=== PATIENT | female | born 1930 | race Caucasian/White ===

== ENCOUNTER 2020-01-10 09:58 | Inpatient (IN) | payer MEDICARE, BC ==
[~2020-01-10] VITALS: Ht 167.6 cm; Wt 106.6 kg
[2020-01-10] MEDS ORDERED: FURO40TA4 PO (10:33)
[2020-01-10] MEDS ORDERED: METO50TA4 PO (10:33)
[2020-01-10] MEDS ORDERED: POTA10TA12 PO (10:33)
[2020-01-10] MEDS ORDERED: LEVO100T5 PO (10:33)
[2020-01-10] MEDS ORDERED: ATOR20TA58 PO (10:33)
[2020-01-10] MEDS ORDERED: PREG300C PO (10:33)
[2020-01-10] MEDS ORDERED: HYDR-2868 PO (10:33)
[2020-01-10] MEDS ORDERED: DULO40CA2 PO (10:33)
[2020-01-10] MEDS ORDERED: LOSA-73 PO (10:33)
[2020-01-10] MEDS ORDERED: PANT40TA77 PO (10:33)
[2020-01-10] MEDS ORDERED: ALLO300T PO (10:33)
[2020-01-10 10:41] LABS: BASO # 0.1 x10^3/uL (0.0-0.2); BASO % 1 % (0-3); EOS # 0.7 x10^3/uL (0.0-0.7); EOS % 10 % (0-3); HEMATOCRIT 40.7 % (36.0-47.0); HEMOGLOBIN 13.4 g/dL (12.0-15.5); LYMPH # 1.4 x10^3/uL (1.0-4.8); LYMPH % 20 % (24-48); MEAN CORPUSCULAR HEMOGLOBIN 32 pg (25-35); MEAN CORPUSCULAR HGB CONC 33 g/dL (31-37); MEAN CORPUSCULAR VOLUME 98 fL (79-100); MONO # 0.5 x10^3/uL (0.0-1.1); MONO % 8 % (0-9); NEUT # 4.4 x10^3/uL (1.8-7.7); NEUT % 62 % (31-73); PLATELET COUNT 156 x10^3/uL (140-400); RED BLOOD COUNT 4.14 x10^6/uL (3.50-5.40); RED CELL DISTRIBUTION WIDTH 14.8 % (11.5-14.5)
[2020-01-10] MEDS ORDERED: LABETALOL 20 MG/4 ML DISP.SYRIN. IVP ONE (10:45)
--- NOTE | 2020-01-10 10:47 | RAD ---
CT head without contrast. CT cervical spine without contrast. PQRS statement: CT scans at this facility use dose reduction including either automated exposure control, iterative reconstructions, and /or weight based radiation dosing via mA and kV modification when appropriate to reduce radiation dose to as low as reasonably achievable. HISTORY: Syncope, fall, stroke. CT head findings: No intracranial hemorrhage, mass, hydrocephalus or extra-axial fluid collections. There is a hypodense age-indeterminate ischemic infarct of the left occipital lobe best demonstrated on axial images 12-14 and on the coronal images as well. 2 cm in thickness left parietal scalp hematoma. Orbits, mastoids and bones are unremarkable. IMPRESSION: 1. No acute traumatic intracranial injury. 2. Age-indeterminate hypodense ischemic infarct of the left occipital lobe. 3. Scalp hematoma. No skull fracture. CT cervical spine findings: Craniocervical junction intact. C1-C2 atlantodental osteoarthritis. Cervical vertebral body height and alignment intact. 1 mm anterolisthesis C4 on C5 associated with disc disease and facet arthritis. Mild heterotopic ossification nuchal ligament dorsal paraspinal tissues. Chronic sclerotic bone ossicles posterior of the C1 lamina. No fracture of the cervical spine. Apical paraseptal interstitial thickening may represent edema. Multilevel cervical disc height loss as well as scattered disc osteophytes and uncovertebral and facet spurring with multilevel neural foraminal stenoses, and probable spinal canal stenoses at C5-C6 and C6-C7 at a minimum. IMPRESSION: 1. No acute osseous injury of the cervical spine. 2. Cervical disc disease. 3. There may be apical pulmonary interstitial edema present. Electronically signed by: Feroz Barnett MD (01/10/2020 10:44 AM) [id number]
--- NOTE | 2020-01-10 10:48 | EKG ---
[facility] [address] [place] [address] Test Date: 2020-01-10 Test Time: 10:04:58 Pat Name: SIMI DEVI Department: Room: Gender: F Structured Cabling Technician: : 1930 Requested By: DEMETRICE BROWNLEE Order Number: [id number] Reading MD: Measurements Intervals [place] Rate: 76 P: 47 MO: 178 QRS: -18 QRSD: 102 T: 7 QT: 388 QTc: 441 Interpretive Statements SINUS RHYTHM LEFTWARD AXIS R-S TRANSITION ZONE IN V LEADS DISPLACED TO THE RIGHT INCOMPLETE RIGHT BUNDLE BRANCH BLOCK QRS(T) CONTOUR ABNORMALITY CONSISTENT WITH INFERIOR INFARCT AGE UNDETERMINED ABNORMAL ECG RI6.02 No previous ECG available for comparison
[2020-01-10 10:50] LABS: CALCIUM 8.9 mg/dL (8.5-10.1); CREATININE 0.9 mg/dL (0.6-1.0); GFR 59.1; POTASSIUM 4.5 mmol/L (3.5-5.1)
[2020-01-10 10:55] LABS: ALBUMIN 3.5 g/dL (3.4-5.0); ALBUMIN/GLOBULIN RATIO 1.1 (1.0-1.7); MAGNESIUM 2.4 mg/dL (1.8-2.4); TOTAL BILIRUBIN 0.4 mg/dL (0.2-1.0); TOTAL PROTEIN 6.6 g/dL (6.4-8.2)
[2020-01-10 11:22] LABS: BILIRUBIN,URINE NEGATIVE (NEG); CLARITY,URINE CLEAR; COLOR,URINE YELLOW; NITRITE,URINE NEGATIVE (NEG); PROTEIN,URINE NEGATIVE (NEG-TRACE)
[2020-01-10 11:33] LABS: PROTHROMBIN TIME PATIENT 13.3 SEC (11.7-14.0)
[2020-01-10 11:35] LABS: BACTERIA,URINE 0 /HPF (0-FEW); RBC,URINE OCC /HPF (0-2); WBC,URINE OCC /HPF (0-4)
[2020-01-10 12:45] LABS: % BANDS 2 % (0-9); % EOS 6 % (0-5); % LYMPHS 18 % (24-48); % MONOS 5 % (0-10); % SEGS 69 % (35-66); PLT ESTIMATE ADEQUATE (ADEQUATE)
--- NOTE | 2020-01-10 13:00 | HP ---
ADMIT DATE: 01/10/2020 CHIEF COMPLAINT: Syncope. HISTORY OF PRESENT ILLNESS: The patient is a pleasant elderly female who apparently fell. She was out for a minute or two. She struck her head. They called the ambulance. She was brought in by ambulance. Trauma activation was initiated. In the ER, we have done some CAT scans of her brain. This showing a subacute stroke. She states she has been seeing a sunflower in her eye for the last 3 months. We suspect that might be when she had her stroke. Nevertheless, I discussed the case with ER physician. We are going to admit the patient and consult Cardiology and Neurology. PAST MEDICAL HISTORY: Hypertension, hyperlipidemia, neuropathy, anxiety, depression, GERD, hypothyroidism, gout. ALLERGIES: CODEINE. FAMILY HISTORY: Diabetes. SOCIAL HISTORY: She does not drink, smoke or take drugs. MEDICATIONS: Reviewed. She is on 11 including atorvastatin, hydrochlorothiazide, metoprolol, losartan, Lyrica, duloxetine, potassium, Lasix, Protonix, Synthroid and allopurinol. REVIEW OF SYSTEMS: GENERAL: No history of weight change, weakness or fevers. SKIN: No bruising, hair changes or rashes. EYES: She complains of a sunflower in her left eye. NOSE AND THROAT: No history of nosebleeds, hoarseness or sore throat. HEART: No history of palpitations, chest pain or shortness of breath on exertion. LUNGS: Denies cough, hemoptysis, wheezing or shortness of breath. GASTROINTESTINAL: Denies changes in appetite, nausea, vomiting, diarrhea or constipation. GENITOURINARY: No history of frequency, urgency, hesitancy or nocturia. NEUROLOGIC: She complains of weakness. PSYCHIATRIC: No history of panic, anxiety or depression. ENDOCRINE: No history of heat or cold intolerance, polyuria or polydipsia. EXTREMITIES: Denies muscle weakness, joint pain, pain on walking or stiffness. PHYSICAL EXAMINATION: VITALS: Within normal limits and are stable. GENERAL: No apparent distress. Alert and oriented. HEENT: The pupils were equally round and reactive to light and accommodation. No ocular changes were noted. EYES: Extraocular muscles are intact, pupils are equally round and reactive to light and accommodation MUSCULOSKELETAL: Well developed, well nourished, good range of motion ENDOCRINE: No thyromegaly was palpated LYMPHATICS: No cervical chain or axillary nodes were noted HEMATOPOIETIC: No bruising NECK: Supple, no JVD, no thyromegaly was noted. LUNGS: Clear to auscultation in all lung regalado without rhonchi or wheezing. HEART: RRR, S1, S2 present. Peripheral pulses intact, no obvious murmurs were noted. ABDOMEN: Soft, nontender. Positive bowel sounds no organomegaly, normal bowel sounds. EXTREMITIES: Without any cyanosis, clubbing, or edema. Pedal pulses intact, Homans sign is negative. NEUROLOGIC: She is somewhat weak. PSYCHIATRIC: Normal affect, normal mood. Stable. SKIN: No ulcerations or rashes, good skin turgor, no jaundice. VASCULAR: Good capillary refill, neurovascular bundle appears to be intact. LABORATORY DATA: Hematology is normal. Electrolytes are normal other than a glucose of 163 and BUN of 24. CT of the head shows no acute traumatic injuries. There is age indeterminate hypodensity in ischemic infarct in the left occipital lobe and a scalp hematoma, but no fractures. ASSESSMENT AND PLAN: Syncope, scalp hematoma, possible subacute stroke, hyperglycemia, azotemia. The patient has been admitted. We will consult Neurology, consult Cardiology. Cardiac monitoring, home meds, deep venous thrombosis prophylaxis. Full code. Long-term prognosis is guarded. IV fluids. LUCRETIA COTE DO DR: TIFFANIE/brown JOB#: [id number] / [id number]
--- NOTE | 2020-01-10 13:03 | PHYS DOC ---
Past Medical History Past Medical History: Arthritis, GERD, High Cholesterol, Hypertension, Hypothyroid, Other Additional Past Medical Histor: gout; neuropathy; Past Surgical History: Cholecystectomy, Coronary Bypass Surgery, Other Additional Past Surgical Histo: pelvis Smoking Status: Never Smoker Alcohol Use: None General Adult EDM: Chief Complaint: TRAUMA ALERT HPI: HPI: Patient is an 89-year-old female who presents to the emergency room after having a syncopal episode and hitting the back of her head. Patient states that she does remember waking up this morning and having breakfast. She took her morning medicine but does not believe she took her 10 AM medicine. She does not remember the fall. According to her daughter she was out for about 60 seconds. Patient states she is feeling better now. Review of Systems: Review of Systems: General: Denies fever, chills, sweats, fatigue Eyes: Denies drainage, blurred vision, eye redness HENT: Denies rhinorrhea, sore throat, earache Respiratory: Denies cough, shortness of breath, wheezing Cardiac: Denies edema, palpitations, chest pain GI: Denies abdominal pain, Nausea, vomiting MSK: Denies back pain, neck pain Skin: Denies rash, jaundice Neuro: Denies headache, dizziness Psychiatric: Denies SI/HI Heart Score: Risk Factors: Risk Factors: DM, Current or recent (<one month) smoker, HTN, HLP, family history of CAD, obesity. Risk Scores: Score 0 - 3: 2.5% MACE over next 6 weeks - Discharge Home Score 4 - 6: 20.3% MACE over next 6 weeks - Admit for Clinical Observation Score 7 - 10: 72.7% MACE over next 6 weeks - Early Invasive Strategies Current Medications: Current Medications Medications (Trade) Dose Ordered Sig/Keshav Start Time Stop Time Status Last Admin Dose Admin Labetalol HCl (Normodyne Iv Push) 10 mg 1X ONCE 01/10/20 10:45 01/10/20 10:46 DC 01/10/20 10:48 10 MG Allergies: Allergies: Allergies Coded Allergies Type Severity Reaction Last Updated Verified codeine Allergy Intermediate Nausea and Vomiting 01/10/20 Yes Physical Exam: PE: General: Awake, alert, NAD. Well Nourished, well hydrated. Cooperative HEENT: Hematoma to back of head, EOMI, PERRL, airway patent, moist oral mucosa, no nasal septal hematoma, no facial crepitus or deformity Neck: Supple, trachea midline, no C-spine tenderness Respiratory: CTA bilaterally, normal effort, no wheezing/crackles, no crepitus CV: RRR, no murmur, cap refill <2, 2+ bilateral radial/DP pulses GI: Soft, nondistended, nontender, no masses MSK: [No obvious deformities], pelvis stable and nontender Skin: Warm, dry, bruising to the right hand Neuro: A&O x3, speech NL, sensory and motor grossly intact, no focal deficits Psych: Normal affect, normal mood, not suicidal or homicidal Current Patient Data: Labs: Laboratory Tests Test 01/10/20 10:27 01/10/20 10:40 White Blood Count 7.0 x10^3/uL (4.0-11.0) Red Blood Count 4.14 x10^6/uL (3.50-5.40) Hemoglobin 13.4 g/dL (12.0-15.5) Hematocrit 40.7 % (36.0-47.0) Mean Corpuscular Volume 98 fL (79-100) Mean Corpuscular Hemoglobin 32 pg (25-35) Mean Corpuscular Hemoglobin Concent 33 g/dL (31-37) Red Cell Distribution Width 14.8 % (11.5-14.5) H Platelet Count 156 x10^3/uL (140-400) Neutrophils (%) (Auto) 62 % (31-73) Lymphocytes (%) (Auto) 20 % (24-48) L Monocytes (%) (Auto) 8 % (0-9) Eosinophils (%) (Auto) 10 % (0-3) H Basophils (%) (Auto) 1 % (0-3) Neutrophils # (Auto) 4.4 x10^3/uL (1.8-7.7) Lymphocytes # (Auto) 1.4 x10^3/uL (1.0-4.8) Monocytes # (Auto) 0.5 x10^3/uL (0.0-1.1) Eosinophils # (Auto) 0.7 x10^3/uL (0.0-0.7) Basophils # (Auto) 0.1 x10^3/uL (0.0-0.2) Segmented Neutrophils % 69 % (35-66) H Band Neutrophils % 2 % (0-9) Lymphocytes % 18 % (24-48) L Monocytes % 5 % (0-10) Eosinophils % 6 % (0-5) H Platelet Estimate Adequate (ADEQUATE) Prothrombin Time 13.3 SEC (11.7-14.0) Prothrombin Time INR 1.1 (0.8-1.1) Activated Partial Thromboplast Time 31 SEC (24-38) Sodium Level 142 mmol/L (136-145) Potassium Level 4.5 mmol/L (3.5-5.1) Chloride Level 105 mmol/L (98-107) Carbon Dioxide Level 28 mmol/L (21-32) Anion Gap 9 (6-14) Blood Urea Nitrogen 24 mg/dL (7-20) H Creatinine 0.9 mg/dL (0.6-1.0) Estimated GFR (Cockcroft-Gault) 59.1 BUN/Creatinine Ratio 27 (6-20) H Glucose Level 163 mg/dL (70-99) H Calcium Level 8.9 mg/dL (8.5-10.1) Magnesium Level 2.4 mg/dL (1.8-2.4) Total Bilirubin 0.4 mg/dL (0.2-1.0) Aspartate Amino Transferase (AST) 22 U/L (15-37) Alanine Aminotransferase (ALT) 25 U/L (14-59) Alkaline Phosphatase 85 U/L (46-116) Troponin I Quantitative < 0.017 ng/mL (0.000-0.055) Total Protein 6.6 g/dL (6.4-8.2) Albumin 3.5 g/dL (3.4-5.0) Albumin/Globulin Ratio 1.1 (1.0-1.7) Urine Collection Type U cath Urine Color Yellow Urine Clarity Clear Urine pH 7.0 (<5.0-8.0) Urine Specific [place] 1.020 (1.000-1.030) Urine Protein Negative mg/dL (NEG-TRACE) Urine Glucose (UA) Negative mg/dL (NEG) Urine Ketones (Stick) Negative mg/dL (NEG) Urine Blood Negative (NEG) Urine Nitrite Negative (NEG) Urine Bilirubin Negative (NEG) Urine Urobilinogen Dipstick 1.0 mg/dL (0.2 mg/dL) Urine Leukocyte Esterase Negative (NEG) Urine RBC Occ /HPF (0-2) Urine WBC Occ /HPF (0-4) Urine Squamous Epithelial Cells Mod /LPF Urine Bacteria 0 /HPF (0-FEW) Urine Mucus Slight /LPF Laboratory Tests 01/10/20 10:27 Laboratory Tests 01/10/20 10:27 Vital Signs: Vital Signs Date Time Temp Pulse Resp B/P (MAP) Pulse Ox O2 Delivery O2 Flow Rate FiO2 01/10/20 12:30 70 16 178/84 (115) 94 Nasal Cannula 2.0 01/10/20 09:58 97.4 97.4 EKG: EKG: [] Radiology/Procedures: Radiology/Procedures: [] Course & Med Decision Making: Course & Med Decision Making Pertinent Labs and Imaging studies reviewed. (See chart for details) Patient is a 89yo elderly female who presents to the ED after a syncopal episode leading to a closed head injury. On exam, patient has a hematoma to the back of the head and mild confusion. Due to patient's age and head trauma they cannot be ruled out with [place] CT head rule and will need a CT head to evaluate for intracranial bleed and a CT cervical spine. No signs of major facial injuries and a CT maxillofacial is not needed at this time. Syncopal work-up will also be ordered. Work-up at this time appears normal, however given patient's significant syncope and history she will need to be admitted for further evaluation. Neurology and cardiology will be consulted. Emilie Disclaimer: Emilie Disclaimer: This electronic medical record was generated, in whole or in part, using a voice recognition dictation system. Departure Departure Impression: Primary Impression: Syncope Additional Impression: Closed head injury Disposition: ADMITTED INPT THIS HOSP Referrals: SHAQUILLE FREIRE (PCP) DEMETRICE BROWNLEE MD Jan 10, 2020 13:03
--- NOTE | 2020-01-10 15:47 | PDOC2 ---
GEORGETTE PEÑALOZA USED [facility] 01/10/20 1547: CARDIAC CONSULT DATE OF CONSULT Date of Consult DATE: 01/10/20 TIME: 15:29 REASON FOR CONSULT Reason for Consult: Syncope REFERRING PHYSICIAN Referring Physician: Ceasar SOURCE Source: Caregiver (daughter), Chart review, Patient HISTORY OF PRESENT ILLNESS HISTORY OF PRESENT ILLNESS This is a pleasant 89 yo female admitted for complains of passing out. She was standing and switching of the faucet and cloing the cabinet door when then next thing she rembered was she on the floor. No flushed sensation, chest pain, palpitations or SOA and no visual or auditory disturbances prior to her passing out. She did have full breakfast that morning. No DM but has mutiple BP meds which she has not taken this morning. This was witnessed as her daughter was just close to her and may have lasted about 1 minute of unconsciousness. There was no BAUER, seziure like activity at wil time and no bowel or bladder incontinence. Denies any arrhythmias. She has been feeling more tired lately but again no chest pain or SOA. Her mobility is limited but able to get around the house otherwise. She has CAD with 4 stents in the past and had TAVR and follows up with Dr. Shepard at [facility]. PAST MEDICAL HISTORY Cardiovascular: CAD, CHF, HTN, Syncope, Hyperlipidemia, Aortic stenosis Pulmonary: Other ([place]) CENTRAL NERVOUS SYSTEM: Periperal neuropathy GI: GERD Psych: Anxiety Musculoskeletal: Osteoarthritis Rheumatologic: Gout ENT: Allergic Rhinitis Renal/: UTI Endocrine: Hypothyroidism Dermatology: No pertinent hx PAST SURGICAL HISTORY Past Surgical History: Other (TAVR 07/2015; PCI; pelvix repair; kyphoplasty) FAMILY HISTORY Family History noncontributory to age SOCIAL HISTORY Smoke: No ALCOHOL: none Drugs: None CURRENT MEDICATIONS CURRENT MEDICATIONS Current Medications Medications (Trade) Dose Ordered Sig/Keshav Route PRN Reason Start Time Stop Time Status Last Admin Dose Admin Labetalol HCl (Normodyne Iv Push) 10 mg 1X ONCE IVP 01/10/20 10:45 01/10/20 10:46 DC 01/10/20 10:48 ALLERGIES ALLERGIES: Coded Allergies: codeine (Verified Allergy, Intermediate, Nausea and Vomiting, 01/10/20) PHYSICAL EXAM General: Alert, Oriented X3, Cooperative, No acute distress HEENT: Atraumatic, Mucous membr. moist/pink Lungs: Clear to auscultation, Normal air movement Heart: Regular rate (SR), Normal S1, Normal S2, Other (S4- 3/6 systolic murmur to KAT border) Abdomen: Soft, No tenderness Extremities: No cyanosis, No edema Skin: No breakdown, Other (left scalp hematoma) Neuro: Normal speech, Sensation intact Psych/Mental Status: Mental status NL, Mood NL MUSCULOSKELETAL: Osteoarthritic changes both hands VITALS/I&O VITALS/I&O: Vital Signs Date Time Temp Pulse Resp B/P (MAP) Pulse Ox O2 Delivery O2 Flow Rate FiO2 01/10/20 15:00 72 16 176/96 (122) 95 Nasal Cannula 2.0 01/10/20 09:58 97.4 97.4 LABS Lab: Laboratory Tests Test 01/10/20 10:27 01/10/20 10:40 White Blood Count 7.0 x10^3/uL (4.0-11.0) Red Blood Count 4.14 x10^6/uL (3.50-5.40) Hemoglobin 13.4 g/dL (12.0-15.5) Hematocrit 40.7 % (36.0-47.0) Mean Corpuscular Volume 98 fL (79-100) Mean Corpuscular Hemoglobin 32 pg (25-35) Mean Corpuscular Hemoglobin Concent 33 g/dL (31-37) Red Cell Distribution Width 14.8 % (11.5-14.5) H Platelet Count 156 x10^3/uL (140-400) Neutrophils (%) (Auto) 62 % (31-73) Lymphocytes (%) (Auto) 20 % (24-48) L Monocytes (%) (Auto) 8 % (0-9) Eosinophils (%) (Auto) 10 % (0-3) H Basophils (%) (Auto) 1 % (0-3) Neutrophils # (Auto) 4.4 x10^3/uL (1.8-7.7) Lymphocytes # (Auto) 1.4 x10^3/uL (1.0-4.8) Monocytes # (Auto) 0.5 x10^3/uL (0.0-1.1) Eosinophils # (Auto) 0.7 x10^3/uL (0.0-0.7) Basophils # (Auto) 0.1 x10^3/uL (0.0-0.2) Segmented Neutrophils % 69 % (35-66) H Band Neutrophils % 2 % (0-9) Lymphocytes % 18 % (24-48) L Monocytes % 5 % (0-10) Eosinophils % 6 % (0-5) H Platelet Estimate Adequate (ADEQUATE) Prothrombin Time 13.3 SEC (11.7-14.0) Prothrombin Time INR 1.1 (0.8-1.1) Activated Partial Thromboplast Time 31 SEC (24-38) Sodium Level 142 mmol/L (136-145) Potassium Level 4.5 mmol/L (3.5-5.1) Chloride Level 105 mmol/L (98-107) Carbon Dioxide Level 28 mmol/L (21-32) Anion Gap 9 (6-14) Blood Urea Nitrogen 24 mg/dL (7-20) H Creatinine 0.9 mg/dL (0.6-1.0) Estimated GFR (Cockcroft-Gault) 59.1 BUN/Creatinine Ratio 27 (6-20) H Glucose Level 163 mg/dL (70-99) H Calcium Level 8.9 mg/dL (8.5-10.1) Magnesium Level 2.4 mg/dL (1.8-2.4) Total Bilirubin 0.4 mg/dL (0.2-1.0) Aspartate Amino Transferase (AST) 22 U/L (15-37) Alanine Aminotransferase (ALT) 25 U/L (14-59) Alkaline Phosphatase 85 U/L (46-116) Troponin I Quantitative < 0.017 ng/mL (0.000-0.055) Total Protein 6.6 g/dL (6.4-8.2) Albumin 3.5 g/dL (3.4-5.0) Albumin/Globulin Ratio 1.1 (1.0-1.7) Urine Collection Type U cath Urine Color Yellow Urine Clarity Clear Urine pH 7.0 (<5.0-8.0) Urine Specific [place] 1.020 (1.000-1.030) Urine Protein Negative mg/dL (NEG-TRACE) Urine Glucose (UA) Negative mg/dL (NEG) Urine Ketones (Stick) Negative mg/dL (NEG) Urine Blood Negative (NEG) Urine Nitrite Negative (NEG) Urine Bilirubin Negative (NEG) Urine Urobilinogen Dipstick 1.0 mg/dL (0.2 mg/dL) Urine Leukocyte Esterase Negative (NEG) Urine RBC Occ /HPF (0-2) Urine WBC Occ /HPF (0-4) Urine Squamous Epithelial Cells Mod /LPF Urine Bacteria 0 /HPF (0-FEW) Urine Mucus Slight /LPF Laboratory Tests 01/10/20 10:27 Laboratory Tests 01/10/20 10:27 ECHOCARDIOGRAM ECHOCARDIOGRAM 07/2016 [facility] Normal LV size and systolic function. LVEF is 65% Grade 1 LV diastolic dysfunction. Normal RV size and systolic function. Mild left atrial dilatation A well seated 26 mm Evolut Core valve transcather AV bioprosthesis is seen. No stenosis. Mean gradient is 9 mmHg. No AI Non specific thickening of the MV with mild annular calcification. No MS. Trace TR. Normal pulmonary artery pressure. No pericardial effusion is seen. ASSESSMENT/PLAN ASSESSMENT/PLAN 1. Syncope with fall with scalp hematoma. Possible arrhythmia. Negative for CSH 2. HTN urgency 3. HLP 4. CAD: past stent, total 4. clinically stable 5. Hyperglycemia 6. 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 Past hx of fall and syncope 8. Past left occipital stroke per CT 9. Fatigue Recommendations 1. EKG SR no acute changes. Will obtain TTE 2. Continue secondary prevention measures.Restart home BP regimen. Labetolol IV PRN Will do orthostatic readings. ASA statin 3. Check TSH, A1C and lipids 4. Monitor rhythm overnight 5. If inconclusive then will need MCOT and need to arrange with her primary atm servicer and I did discussed this with her daughter. 6. If no recent stress test then will need to consider as an outpt given her increaseing fatigue and significant cardiac risk factors MAX MATOS MD 01/10/202044: CARDIAC CONSULT ASSESSMENT/PLAN ASSESSMENT/PLAN Patient seen and examined. Agree with MANUFACTURING TECHNOLOGY ANALYST's assessment and plan. Tele did not show any significant arrhythmias Check 2D echo to rule out any structural abnormalities BP better controlled since admission Plan outpatient event monitor to rule out arrhythmias as a cause of syncope Thank you for your consultation GEORGETTE PEÑALOZA APRN Jan 10, 2020 15:47 MAX MATOS MD Jan 10, 2020 20:45
[2020-01-10 16:20] VITALS: BP 193/81
[2020-01-10 16:46] VITALS: BP 205/87
[2020-01-10 16:47] VITALS: BP_SYST 186; BP_SYST 206; BP_DIAS 82; BP_DIAS 91
[2020-01-10 16:54] LABS: CHOLESTEROL/HDL RATIO 3.8
[2020-01-10] MEDS: LOSARTAN POTASSIUM 50 MG TABLET. PO SCH (17:07)
[2020-01-10] MEDS: LABETALOL 20 MG/4 ML DISP.SYRIN. IVP PRN (17:08)
[2020-01-10] MEDS: METOPROLOL SUCC 24HR ER 50 MG TAB.ER.24H. PO SCH (17:08)
[2020-01-10 18:20] VITALS: BP 137/61
[2020-01-10 19:00] VITALS: BP 187/95
--- NOTE | 2020-01-10 20:31 | CONS ---
DATE OF CONSULTATION: 01/10/2020 REFERRING PHYSICIAN: Jabier Ragland MD REASON FOR CONSULTATION: Syncope, peripheral neuropathy, gait disturbance and severe acute neck pain. HISTORY OF PRESENT ILLNESS: The patient is a pleasant 89-year-old woman who was in her kitchen. She remembers getting something out of her refrigerator and this is the last she remembers. She fell back on her head. She does not remember the fall or the impact. One of her daughters was in the house. She awoke within 30 minutes and was talking, but asked the same question repeatedly. It took a few minutes before she was making more sense. Paramedics were summoned and she was taken to [facility]. She underwent a CT scan of her head and cervical spine in the Emergency Room. There was no acute intracranial injury nor was there an acute osseous injury of the cervical spine. The patient lives in her own home by herself. Her closest daughter is about 6 miles away. She has previously had syncope related to coronary artery disease. With this spell, she did not have convulsive activity. She did not have a warning that this spell was going to happen. She does now complain of neck pain after this fall. Any movement of the neck seems to cause her to have left-sided neck pain. She has also had a visual disturbance out of her left eye where it feels like she is seeing a sunflower. She will close her left eye and see normally out of the right eye. She has not had this investigated by ux specialist. She has not noted focal weakness. She has peripheral neuropathy for which she follows with Dr. Camacho. It does not sound as if an etiology for the neuropathy has ever been discovered. PAST MEDICAL HISTORY: 1. Hypertension. 2. Hyperlipidemia. 3. Peripheral neuropathy. 4. Anxiety and depression. 5. Gastroesophageal reflux disease. 6. Hypothyroidism. 7. Gout. 8. History of syncope. 9. Coronary artery disease, status post stents. ALLERGIES: CODEINE. MEDICATIONS PRIOR TO ADMISSION: Allopurinol 300 mg, atorvastatin 20 mg, duloxetine 40 mg, furosemide 40 mg, hydralazine 25 mg twice per day, levothyroxine 100 mcg, losartan 50 mg, metoprolol succinate 50 mg, pantoprazole 40 mg, potassium chloride 10 mEq and Lyrica 300 mg twice per day. FAMILY HISTORY: Diabetes. SOCIAL HISTORY: She lives alone. She does not smoke tobacco, drink alcohol or use recreational drugs. She has children that keep an eye. REVIEW OF SYSTEMS: She has occasional headaches, but not currently. She does currently have neck pain, especially on the left side with head movement. She has not had cough, cold, or shortness of breath. She does not have chest or abdominal pain. She has arthritic pain. She does not have fever or rash. She has chronic constipation. She does not have any genitourinary complaint. She does not currently have a psychiatric complaint. She does get swelling of her feet and ankles. She does not complain of excessive bruising or bleeding. PHYSICAL EXAMINATION: VITAL SIGNS: The blood pressure was 137/61, although that was the lowest. Previously it had been 206/82. The pulse was 70, respirations 16, temperature 97.6 degrees Fahrenheit. Oximetry was 97% on 2 liters nasal cannula. Her weight was 81 kilograms, height 66 inches with a calculated body mass index of 28.8. GENERAL: She was alert, awake and cooperative. Speech was fluent and clear. She had a good fund of recent and remote knowledge except for this recent incident. Attention and concentration were fair. She seemed to have slow processing where there was a lack time, but then she did eventually understand what was being said. She appeared well groomed and well nourished. She was oriented. NEUROLOGIC: Examination of the cranial nerves revealed visual regalado were full to confrontation. She seemed to struggle more with the left visual field than the right. Extraocular movements were intact. The eyes were conjugate. Pursuit movements were smooth and saccadic eye movements were without dysmetria. Facial sensation was intact. The muscles of mastication and facial expression were powerful symmetrically. Hearing was intact to finger rub. The palate arched symmetrically and the tongue was midline with full motion. Sternocleidomastoid and trapezius were powerful. Muscle bulk and tone was normal. There was perhaps slight amount of left arm drift. Power was full and symmetric in the upper and lower extremities except for weakness with knee flexion and dorsiflexion 4+/5. Reflexes were 2/4 in the upper extremities, trace at the knees, absent at the ankles. Toes were not upgoing. Coordination testing with [id number], nova-ab-xota, fine motor and rapid alternating movements was fair. Sensory examination was intact in the upper extremities to pain, light touch, proprioception, graphesthesia, cold thermal and vibration. There was no extinction to double simultaneous stimulation. In the lower extremities, there was marked sensory shading. Sharp was not perceived until the knee. Cold thermal was perceived 3/[address] up the calf. Vibratory sense was perceived about half way up the calf. Proprioception was absent in the feet. Gait was not testable. NECK: Auscultation of the carotid arteries did not reveal a bruit. HEART: Rhythm was regular without a murmur. EXTREMITIES: Peripheral pulses were symmetric in the hands, but difficult to palpate in the feet. There was some mild edema in the feet and ankles. Overall, she seems to have some sensory shading to several modalities in the right upper extremity compared to the left. LABORATORY RESULTS: CBC was performed 01/10/2020 revealing a normal white blood cell count, hemoglobin, hematocrit and platelet count. Chemistries were performed on 01/10/2020. Electrolytes were normal. BUN was elevated to 24 and creatinine was 0.9 with a GFR that calculated at 59.1. Glucose was elevated at 163. Calcium and magnesium were normal. The liver enzymes were not elevated. Total protein and albumin were normal. Troponin was not elevated. Lipid profile was performed on 01/10/2020 revealing a total cholesterol of 156, triglycerides of 121, HDL was 41, LDL 91 and VLDL 24. TSH was normal at 1.484. Troponin was not elevated. PT/INR on 01/10/2020 was 1.1 and aPTT was 31. Urinalysis was performed on 01/10/2020 revealing occasional white cells, occasional red cells, moderate squamous epithelial cells and no bacteria. DIAGNOSTIC RESULTS: CT scan of the head and cervical spine were performed without contrast on 01/10/2020. There was no acute intracranial hemorrhage. There may have been an age indeterminate stroke of the left occipital lobe. The cervical spine did not reveal an acute bony fracture. IMPRESSION: The patient is a pleasant 89-year-old woman who had an episode of syncope at home while in her kitchen. She had no warning and no postictal state. There was no convulsive activity. I do not feel this was neurocardiogenic syncope nor do I feel it was seizure. This may be of cardiac etiology. Her neurologic exam does reveal evidence of a peripheral neuropathy. It is possible she may be orthostatic. In situations as this, there is often a prodrome of lightheadedness and dizziness. She may possibly have had a previous stroke, but syncope typically is not the onset of a stroke. RECOMMENDATIONS: We will arrange for an MRI brain to better evaluate for stroke given the findings on the CAT scan. The visual disturbance in the left eye alone, will typically be a monocular issues, so she should see Ophthalmology as an outpatient. Her balance is severely impaired from neuropathy, diminished vision as well as diminished vestibular input. This cannot be fixed, but only thing she can do is compensate by diligently using a walker. We will have physical therapy evaluate her to make sure she is as safe as possible with her gait. She may need a long-term monitor, I will leave this to the discretion of Cardiology. I appreciate being involved in her care. LISA TURNER MD DR: LATRICE/brown JOB#: [id number] / [id number]
[2020-01-10] MEDS: hydrALAZINE 25 MG TABLET PO SCH (22:46)
[2020-01-10 23:00] VITALS: BP 181/73
[2020-01-11] MEDS ORDERED: ACETAMINOPHEN 325 MG TABLET. PO PRN (01:45)
[2020-01-11] MEDS ORDERED: fentaNYL PF VIAL 100 MCG/2 ML VIAL IVP PRN (01:45)
[2020-01-11] MEDS ORDERED: traMADol 50 MG TABLET PO PRN (01:45)
[2020-01-11 02:08] LABS: HEMOGLOBIN A1C 5.9 % (4.8-5.6)
[2020-01-11 03:00] VITALS: BP 187/83
[2020-01-11 07:00] VITALS: BP 176/74
[2020-01-11] MEDS: LOSARTAN POTASSIUM 50 MG TABLET. PO SCH (08:26)
[2020-01-11] MEDS: ASPIRIN ENTERIC COATED 81 MG TABLET.DR. PO SCH (08:26)
[2020-01-11] MEDS: hydrALAZINE 25 MG TABLET PO SCH ×2 (08:27→20:33)
[2020-01-11] MEDS: ATORVASTATIN CALCIUM 20 MG TABLET PO SCH (08:27)
[2020-01-11] MEDS: METOPROLOL SUCC 24HR ER 50 MG TAB.ER.24H. PO SCH (08:27)
[2020-01-11] MEDS ORDERED: METOPROLOL SUCC 24HR ER 50 MG TAB.ER.24H. PO SCH (09:00)
[2020-01-11] MEDS ORDERED: LOSARTAN POTASSIUM 50 MG TABLET. PO SCH (09:00)
[2020-01-11 11:00] VITALS: BP 151/81
--- NOTE | 2020-01-11 12:37 | PDOC ---
[facility] [facility] PROGRESS NOTE Date of Service DOS: DATE: 01/11/20 TIME: 12:31 Chief Complaint Chief Complaint Syncope, scalp hematoma, possible subacute stroke, hyperglycemia, azotemia. The patient has been admitted. We will consult Neurology, consult Cardiology. Cardiac monitoring, home meds, deep venous thrombosis prophylaxis. Full code. Long-term prognosis is guarded. IV fluids. History of Present Illness History of Present Illness The patient is a pleasant elderly female who apparently fell. She was out for a minute or two. She struck her head. They called the ambulance. She was brought in by ambulance. Trauma activation was initiated. In the ER, we have done some CAT scans of her brain. This showing a subacute stroke. She states she has been seeing a sunflower in her eye for the last 3 months. We suspect that might be when she had her stroke. Nevertheless, I discussed the case with ER physician. We are going to admit the patient and consult Cardiology and Neurology. 01/11/2020 Patient evaluated with daughters at bedside. Patient and daughter has no history of multiple falls at home. MRI and echocardiogram is still pending. Consult PT for evaluation, she will likely need a walker upon discharge. Vitals/I&O Vitals/I&O: Vital Signs Date Time Temp Pulse Resp B/P (MAP) Pulse Ox O2 Delivery O2 Flow Rate FiO2 01/11/20 11:00 98.0 72 18 151/81 (104) 91 Room Air 98.0 01/11/20 08:00 2.0 I & O 01/10/20 01/10/20 01/11/20 15:00 23:00 07:00 Intake Total 150 ml Output Total 500 ml Balance -350 ml Physical Exam General: Alert, Oriented X3, Cooperative, No acute distress Heart: Regular rate (SR), Normal S1, Normal S2, Other (S4- 3/6 systolic murmur to KAT border) Abdomen: Soft, No tenderness Extremities: No cyanosis, No edema Skin: No breakdown, Other (left scalp hematoma) Review of Systems Review of Systems: Denies chest pain, denies shortness of breath, denies fever Assessment and Plan Assessmemt and Plan Problems Medical Problems: (1) Closed head injury Status: Acute (2) Syncope Status: Acute Comment Review of Relevant I have reviewed the following items jocelyn (where applicable) has been applied. Medications: Current Medications Medications (Trade) Dose Ordered Sig/Keshav Route PRN Reason Start Time Stop Time Status Last Admin Dose Admin Atorvastatin Calcium (Lipitor) 20 mg DAILY PO 01/11/20 09:00 01/11/20 08:27 Hydralazine HCl (Apresoline) 25 mg BID PO 01/10/20 21:00 01/11/20 08:27 Aspirin (Ecotrin) 81 mg DAILYWBKFT PO 01/11/20 08:00 01/11/20 08:26 Labetalol HCl (Normodyne Iv Push) 20 mg PRN Q2HR PRN IVP HYPERTENSION 01/10/20 15:45 01/10/20 17:08 Losartan Potassium (Cozaar) 50 mg DAILY PO 01/10/20 17:00 01/11/20 08:26 Metoprolol Succinate (Toprol Xl) 50 mg DAILY PO 01/10/20 17:00 01/11/20 08:27 Justifications for Admission Other Justification NANI GRIER MD Jan 11, 2020 12:37
--- NOTE | 2020-01-11 13:15 | PDOC ---
PROGRESS NOTES Date of Service: DATE: 01/11/20 TIME: 13:15 Subjective Subjective c/o generalized weakness but denied any chest pain, palpitations Objective Objective Vital Signs Date Time Temp Pulse Resp B/P (MAP) Pulse Ox O2 Delivery O2 Flow Rate FiO2 01/11/20 11:00 98.0 72 18 151/81 (104) 91 Room Air 98.0 01/11/20 08:00 2.0 Intake and Output 01/11/20 07:00 Intake Total 150 ml Output Total 500 ml Balance -350 ml Intake Oral 150 ml Output Urine Total 500 ml Physical Exam Abdomen: Soft, No tenderness Heart: Regular rate (SR), Normal S1, Normal S2, Other (S4- 3/6 systolic murmur to KAT border) Extremities: No cyanosis, No edema General: Alert, Oriented X3, Cooperative, No acute distress HEENT: Atraumatic, Mucous membr. moist/pink Lungs: Clear to auscultation, Normal air movement MUSCULOSKELETAL: Osteoarthritic changes both hands Neuro: Normal speech, Sensation intact Psych/Mental Status: Mental status NL, Mood NL Skin: No breakdown, Other (left scalp hematoma) Assessment Assessment 1. Syncope with fall with scalp hematoma. Telemetry did not show any sign ificant arrhythmias so far. Carotid massage did not elicit carotid hypersensitivity syndrome. Recommend follow-up with primary business process analyst for possible loop recorder implantation. 2. HTN urgency: Better controlled 3. HLP: Statins 4. CAD: s/p PCI/stents 8 yrs ago per patient. clinically stable and chest pain- free. Continue current secondary prevention measures. 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 Past left occipital stroke per CT Plan Plan of Care Problems Medical Problems: (1) Closed head injury Status: Acute (2) Syncope Status: Acute Comment Review of Relevant I have reviewed the following items jocelyn (where applicable) has been applied. Medications Current Medications Acetaminophen (Tylenol) 650 mg PRN Q6HRS PRN PO MILD PAIN / TEMP > 100.3'F; Start 01/11/20 at 01:45 Aspirin (Ecotrin) 81 mg DAILYWBKFT PO Last administered on 01/11/20at 08:26; Start 01/11/20 at 08:00 Atorvastatin Calcium (Lipitor) 20 mg DAILY PO Last administered on 01/11/20at 08:27; Start 01/11/20 at 09:00 Fentanyl Citrate (Fentanyl 2ml Vial) 25 mcg PRN Q2HR PRN IVP PAIN; Start 01/11/20 at 01:45 Hydralazine HCl (Apresoline) 25 mg BID PO Last administered on 01/11/20at 08:27; Start 01/10/20 at 21:00 Labetalol HCl (Normodyne Iv Push) 20 mg PRN Q2HR PRN IVP HYPERTENSION Last administered on 01/10/20at 17:08; Start 01/10/20 at 15:45 Losartan Potassium (Cozaar) 50 mg DAILY PO Last administered on 01/11/20at 08:26; Start 01/10/20 at 17:00 Losartan Potassium (Cozaar) 50 mg DAILY PO ; Start 01/11/20 at 09:00; Stop 01/10/20 at 16:50; Status DC Metoprolol Succinate (Toprol Xl) 50 mg DAILY PO Last administered on 01/11/20at 08:27; Start 01/10/20 at 17:00 Metoprolol Succinate (Toprol Xl) 50 mg DAILY PO ; Start 01/11/20 at 09:00; Stop 01/10/20 at 16:50; Status DC Tramadol HCl (Ultram) 50 mg PRN Q6HRS PRN PO SEVERE PAIN 7-10; Start 01/11/20 at 01:45 Vitals/I & O Vital Sign - Last 24 Hours 01/10/20 01/10/20 01/10/20 01/10/20 13:30 13:45 14:15 14:45 Pulse 72 64 72 72 Resp 18 18 16 16 B/P (MAP) 184/79 (114) 155/94 (114) 173/97 (122) 184/81 (115) Pulse Ox 93 95 95 95 O2 Delivery Nasal Cannula Nasal Cannula O2 Flow Rate 2.0 2.0 01/10/20 01/10/20 01/10/20 01/10/20 15:00 15:30 16:20 16:46 Temp 97.6 97.6 Pulse 72 74 67 68 Resp 16 16 16 B/P (MAP) 176/96 (122) 170/96 (120) 193/81 (118) 205/87 (126) Pulse Ox 95 94 97 O2 Delivery Nasal Cannula Nasal Cannula Nasal Cannula O2 Flow Rate 2.0 2.0 2.0 01/10/20 01/10/20 01/10/20 01/10/20 16:47 16:47 17:00 17:07 Pulse 69 65 65 B/P (MAP) 186/91 (122) 206/82 (123) 206/82 O2 Delivery Trach Collar O2 Flow Rate 2.0 01/10/20 01/10/20 01/10/20 01/10/20 17:08 17:08 18:20 19:00 Temp 97.4 97.4 Pulse 65 65 70 72 Resp 16 B/P (MAP) 206/82 206/82 137/61 (86) 187/95 (125) Pulse Ox 94 01/10/20 01/10/20 01/10/20 01/11/20 20:04 22:46 23:00 03:00 Temp 97.7 97.9 97.7 97.9 Pulse 70 65 78 Resp 16 18 B/P (MAP) 137/61 181/73 (109) 187/83 (117) Pulse Ox 95 94 O2 Delivery Nasal Cannula O2 Flow Rate 2.0 01/11/20 01/11/20 01/11/20 01/11/20 07:00 08:00 08:26 08:27 Temp 98.0 98.0 Pulse 109 109 109 Resp 19 B/P (MAP) 176/74 (108) 176/74 176/74 Pulse Ox 94 O2 Delivery Nasal Cannula Nasal Cannula O2 Flow Rate 2.0 2.0 01/11/20 01/11/20 08:27 11:00 Temp 98.0 98.0 Pulse 109 72 Resp 18 B/P (MAP) 176/74 151/81 (104) Pulse Ox 91 O2 Delivery Room Air Intake and Output 01/10/20 01/10/20 01/11/20 15:00 23:00 07:00 Intake Total 150 ml Output Total 500 ml Balance -350 ml MAX MATOS MD Jan 11, 2020 13:15
--- NOTE | 2020-01-11 14:27 | PDOC ---
PROGRESS NOTES Date of Service DATE: 01/11/20 TIME: 14:24 Assessment Problems Medical Problems: (1) Closed head injury Status: Acute (2) Syncope Status: Acute Syncop Idiopathic peripheral neuropathy, for which I follow her in the clinic Abnormal head CT, doubt that she had a stroke. Plan Await brain MRI Outpatient ophthalmology evaluation Further testing per cardiology Follow-up with me per schedule. Aim for discharge tomorrow Discussed with patient and family. Subjective No complaints, wants to go home Objective Vital Signs Date Time Temp Pulse Resp B/P (MAP) Pulse Ox O2 Delivery O2 Flow Rate FiO2 01/11/20 11:00 98.0 72 18 151/81 (104) 91 Room Air 98.0 01/11/20 08:00 2.0 Intake and Output 01/11/20 07:00 Intake Total 150 ml Output Total 500 ml Balance -350 ml Intake Oral 150 ml Output Urine Total 500 ml PHYSICAL EXAM Alert. Oriented to time, place and person. PERRL. EOMI. CN: no focal findings. Muscle tone: normal. Muscle strength: 4/5 DTR: 0+ Plantar reflex: flexor Gait: not examined in bed. Sensory exam: Stocking-glove loss. No cerebellar signs elicited. Review of Relevant I have reviewed the following items jocelyn (where applicable) has been applied. Labs Laboratory Tests Test 01/10/20 10:27 01/10/20 10:40 White Blood Count 7.0 x10^3/uL (4.0-11.0) Red Blood Count 4.14 x10^6/uL (3.50-5.40) Hemoglobin 13.4 g/dL (12.0-15.5) Hematocrit 40.7 % (36.0-47.0) Mean Corpuscular Volume 98 fL (79-100) Mean Corpuscular Hemoglobin 32 pg (25-35) Mean Corpuscular Hemoglobin Concent 33 g/dL (31-37) Red Cell Distribution Width 14.8 % (11.5-14.5) Platelet Count 156 x10^3/uL (140-400) Neutrophils (%) (Auto) 62 % (31-73) Lymphocytes (%) (Auto) 20 % (24-48) Monocytes (%) (Auto) 8 % (0-9) Eosinophils (%) (Auto) 10 % (0-3) Basophils (%) (Auto) 1 % (0-3) Neutrophils # (Auto) 4.4 x10^3/uL (1.8-7.7) Lymphocytes # (Auto) 1.4 x10^3/uL (1.0-4.8) Monocytes # (Auto) 0.5 x10^3/uL (0.0-1.1) Eosinophils # (Auto) 0.7 x10^3/uL (0.0-0.7) Basophils # (Auto) 0.1 x10^3/uL (0.0-0.2) Segmented Neutrophils % 69 % (35-66) Band Neutrophils % 2 % (0-9) Lymphocytes % 18 % (24-48) Monocytes % 5 % (0-10) Eosinophils % 6 % (0-5) Platelet Estimate Adequate (ADEQUATE) Prothrombin Time 13.3 SEC (11.7-14.0) Prothromb Time International Ratio 1.1 (0.8-1.1) Activated Partial Thromboplast Time 31 SEC (24-38) Sodium Level 142 mmol/L (136-145) Potassium Level 4.5 mmol/L (3.5-5.1) Chloride Level 105 mmol/L (98-107) Carbon Dioxide Level 28 mmol/L (21-32) Anion Gap 9 (6-14) Blood Urea Nitrogen 24 mg/dL (7-20) Creatinine 0.9 mg/dL (0.6-1.0) Estimated GFR (Cockcroft-Gault) 59.1 BUN/Creatinine Ratio 27 (6-20) Glucose Level 163 mg/dL (70-99) Hemoglobin A1c 5.9 % (4.8-5.6) Calcium Level 8.9 mg/dL (8.5-10.1) Magnesium Level 2.4 mg/dL (1.8-2.4) Total Bilirubin 0.4 mg/dL (0.2-1.0) Aspartate Amino Transf (AST/SGOT) 22 U/L (15-37) Alanine Aminotransferase (ALT/SGPT) 25 U/L (14-59) Alkaline Phosphatase 85 U/L (46-116) Troponin I Quantitative < 0.017 ng/mL (0.000-0.055) Total Protein 6.6 g/dL (6.4-8.2) Albumin 3.5 g/dL (3.4-5.0) Albumin/Globulin Ratio 1.1 (1.0-1.7) Triglycerides Level 121 mg/dL (0-150) Cholesterol Level 156 mg/dL (0-200) LDL Cholesterol, Calculated 91 mg/dL (0-100) VLDL Cholesterol, Calculated 24 mg/dL (0-40) Non-HDL Cholesterol Calculated 115 mg/dL (0-129) HDL Cholesterol 41 mg/dL (40-60) Cholesterol/HDL Ratio 3.8 Thyroid Stimulating Hormone (TSH) 1.484 uIU/mL (0.358-3.74) Urine Collection Type U cath Urine Color Yellow Urine Clarity Clear Urine pH 7.0 (<5.0-8.0) Urine Specific Hancock 1.020 (1.000-1.030) Urine Protein Negative mg/dL (NEG-TRACE) Urine Glucose (UA) Negative mg/dL (NEG) Urine Ketones (Stick) Negative mg/dL (NEG) Urine Blood Negative (NEG) Urine Nitrite Negative (NEG) Urine Bilirubin Negative (NEG) Urine Urobilinogen Dipstick 1.0 mg/dL (0.2 mg/dL) Urine Leukocyte Esterase Negative (NEG) Urine RBC Occ /HPF (0-2) Urine WBC Occ /HPF (0-4) Urine Squamous Epithelial Cells Mod /LPF Urine Bacteria 0 /HPF (0-FEW) Urine Mucus Slight /LPF Medications Current Medications Labetalol HCl (Normodyne Iv Push) 10 mg 1X ONCE IVP Last administered on 01/10/20at 10:48; Start 01/10/20 at 10:45; Stop 01/10/20 at 10:46; Status DC Atorvastatin Calcium (Lipitor) 20 mg DAILY PO Last administered on 01/11/20at 08:27; Start 01/11/20 at 09:00 Hydralazine HCl (Apresoline) 25 mg BID PO Last administered on 01/11/20at 08:27; Start 01/10/20 at 21:00 Losartan Potassium (Cozaar) 50 mg DAILY PO ; Start 01/11/20 at 09:00; Stop 01/10/20 at 16:50; Status DC Metoprolol Succinate (Toprol Xl) 50 mg DAILY PO ; Start 01/11/20 at 09:00; Stop 01/10/20 at 16:50; Status DC Aspirin (Ecotrin) 81 mg DAILYWBKFT PO Last administered on 01/11/20at 08:26; Start 01/11/20 at 08:00 Labetalol HCl (Normodyne Iv Push) 20 mg PRN Q2HR PRN IVP HYPERTENSION Last administered on 01/10/20at 17:08; Start 01/10/20 at 15:45 Losartan Potassium (Cozaar) 50 mg DAILY PO Last administered on 01/11/20at 08:26; Start 01/10/20 at 17:00 Metoprolol Succinate (Toprol Xl) 50 mg DAILY PO Last administered on 01/11/20at 08:27; Start 01/10/20 at 17:00 Acetaminophen (Tylenol) 650 mg PRN Q6HRS PRN PO MILD PAIN / TEMP > 100.3'F; Start 01/11/20 at 01:45 Tramadol HCl (Ultram) 50 mg PRN Q6HRS PRN PO SEVERE PAIN 7-10; Start 01/11/20 at 01:45 Fentanyl Citrate (Fentanyl 2ml Vial) 25 mcg PRN Q2HR PRN IVP PAIN; Start 01/11/20 at 01:45 Active Scripts Active Reported Furosemide 40 Mg Tablet 1 Tab PO DAILY Duloxetine HCl 40 Mg Capsule.dr 1 Cap PO DAILY 30 Days Pantoprazole Sodium (Pantoprazole Sodium) 40 Mg Tablet.dr 40 Mg PO DAILYAC Allopurinol 300 Mg Tablet 1 Tab PO DAILY Atorvastatin Calcium 20 Mg Tablet 1 Tab PO DAILY Levothyroxine Sodium 100 Mcg Tablet 1 Tab PO DAILY Toprol XL (Metoprolol Succinate) 50 Mg Tab.er.24h 50 Mg PO DAILY Klor-Con 10 (Potassium Chloride) 10 Meq Tablet.er 1 Tab PO DAILY 30 Days Hydralazine Hcl 25 Mg Tablet 1 Tab PO BID Lyrica (Pregabalin) 300 Mg Capsule 1 Cap PO BID Losartan Potassium 50 Mg Tablet 50 Mg PO DAILY Vitals/I & O Vital Sign - Last 24 Hours 01/10/20 01/10/20 01/10/20 01/10/20 14:45 15:00 15:30 16:20 Temp 97.6 97.6 Pulse 72 72 74 67 Resp 16 16 16 16 B/P (MAP) 184/81 (115) 176/96 (122) 170/96 (120) 193/81 (118) Pulse Ox 95 95 94 97 O2 Delivery Nasal Cannula Nasal Cannula Nasal Cannula Nasal Cannula O2 Flow Rate 2.0 2.0 2.0 2.0 01/10/20 01/10/20 01/10/20 01/10/20 16:46 16:47 16:47 17:00 Pulse 68 69 65 B/P (MAP) 205/87 (126) 186/91 (122) 206/82 (123) O2 Delivery Trach Collar O2 Flow Rate 2.0 01/10/20 01/10/20 01/10/20 01/10/20 17:07 17:08 17:08 18:20 Pulse 65 65 65 70 B/P (MAP) 206/82 206/82 206/82 137/61 (86) 01/10/20 01/10/20 01/10/20 01/10/20 19:00 20:04 22:46 23:00 Temp 97.4 97.7 97.4 97.7 Pulse 72 70 65 Resp 16 16 B/P (MAP) 187/95 (125) 137/61 181/73 (109) Pulse Ox 94 95 O2 Delivery Nasal Cannula O2 Flow Rate 2.0 01/11/20 01/11/20 01/11/20 01/11/20 03:00 07:00 08:00 08:26 Temp 97.9 98.0 97.9 98.0 Pulse 78 109 109 Resp 18 19 B/P (MAP) 187/83 (117) 176/74 (108) 176/74 Pulse Ox 94 94 O2 Delivery Nasal Cannula Nasal Cannula O2 Flow Rate 2.0 2.0 01/11/20 01/11/20 01/11/20 08:27 08:27 11:00 Temp 98.0 98.0 Pulse 109 109 72 Resp 18 B/P (MAP) 176/74 176/74 151/81 (104) Pulse Ox 91 O2 Delivery Room Air Intake and Output 01/10/20 01/10/20 01/11/20 15:00 23:00 07:00 Intake Total 150 ml Output Total 500 ml Balance -350 ml Justicifation of Admission Dx: Justifications for Admission: Justification of Admission Dx: N/A SHAQUILLE FIORE MD Jan 11, 2020 14:27
[2020-01-11 15:00] VITALS: BP 112/61
[2020-01-11 19:50] VITALS: BP 178/93
--- NOTE | 2020-01-11 20:15 | NUR ---
Patient to undergo MRI today, spoke to César regarding the procedure. The patient has a history of PTCA with stents and Aortic valve repair/replacement. Information obtained from the patient's daughter, Mari [phone]. The patient has [employer] aortic valve model [id number] Serial number [id number], aortic plant date: July 29, 2015. Conditional MRI. Info Dr. César Denis [phone].
[2020-01-11 23:26] VITALS: BP 175/76
[2020-01-12] MEDS ORDERED: ONDANSETRON PF 4 MG/2 ML VIAL. IVP PRN (02:30)
[2020-01-12 07:14] VITALS: BP 204/93
[2020-01-12] MEDS: LOSARTAN POTASSIUM 50 MG TABLET. PO SCH (09:42)
[2020-01-12] MEDS: ATORVASTATIN CALCIUM 20 MG TABLET PO SCH (09:42)
[2020-01-12] MEDS: ASPIRIN ENTERIC COATED 81 MG TABLET.DR. PO SCH (09:42)
[2020-01-12] MEDS: hydrALAZINE 25 MG TABLET PO SCH (09:42)
[2020-01-12] MEDS: METOPROLOL SUCC 24HR ER 50 MG TAB.ER.24H. PO SCH (09:43)
--- NOTE | 2020-01-12 11:14 | PDOC ---
[facility] PROGRESS NOTE Date of Service DOS: DATE: 01/12/20 TIME: 11:11 Chief Complaint Chief Complaint Syncope, scalp hematoma, possible subacute stroke, hyperglycemia, azotemia. The patient has been admitted. We will consult Neurology, consult Cardiology. Cardiac monitoring, home meds, deep venous thrombosis prophylaxis. Full code. Long-term prognosis is guarded. IV fluids. History of Present Illness History of Present Illness The patient is a pleasant elderly female who apparently fell. She was out for a minute or two. She struck her head. They called the ambulance. She was brought in by ambulance. Trauma activation was initiated. In the ER, we have done some CAT scans of her brain. This showing a subacute stroke. She states she has been seeing a sunflower in her eye for the last 3 months. We suspect that might be when she had her stroke. Nevertheless, I discussed the case with ER physician. We are going to admit the patient and consult Cardiology and Neurology. 01/11/2020 Patient evaluated with daughters at bedside. Patient and daughter has no history of multiple falls at home. MRI and echocardiogram is still pending. Consult PT for evaluation, she will likely need a walker upon discharge. 01/12/2020 Patient evaluated with daughters at bedside. Patient reports new onset headache this morning, with associated vomiting x2, tachycardia, elevated blood pressure. Patient has history of recent fall with head trauma evaluated with CT brain on admission that showed superficial hematoma without ICH. Current symptoms concerning for intracranial hemorrhage. Will order stat CT head. Discussed with RN. Vitals/I&O Vitals/I&O: Vital Signs Date Time Temp Pulse Resp B/P (MAP) Pulse Ox O2 Delivery O2 Flow Rate FiO2 01/12/20 09:43 92 204/93 01/12/20 08:15 Room Air 01/12/20 07:14 97.6 16 87 97.6 01/11/20 08:00 2.0 I & O 01/11/20 01/11/20 01/12/20 15:00 23:00 07:00 Intake Total 120 ml 180 ml Output Total 3 ml Balance 120 ml 177 ml Physical Exam General: Alert, Oriented X3, Cooperative, mild distress Heart: Normal S1, Normal S2, Other (S4- 3/6 systolic murmur to KAT border) Lungs: Clear Abdomen: Soft, No tenderness Extremities: No cyanosis, No edema Skin: No breakdown, Other (left scalp hematoma) Review of Systems Review of Systems: Headache, nausea. Denies chest pain, denies shortness of breath, denies fever Assessment and Plan Assessmemt and Plan Problems Medical Problems: (1) Closed head injury Status: Acute (2) Syncope Status: Acute Comment Review of Relevant I have reviewed the following items jocelyn (where applicable) has been applied. Medications: Current Medications Medications (Trade) Dose Ordered Sig/Keshav Route PRN Reason Start Time Stop Time Status Last Admin Dose Admin Ondansetron HCl (Zofran) 4 mg PRN Q6HRS PRN IVP NAUSEA/VOMITING 01/12/20 02:30 01/12/20 07:34 Justifications for Admission Other Justification NANI GRIER MD Jan 12, 2020 11:13
[2020-01-12 11:16] VITALS: BP 183/92
--- NOTE | 2020-01-12 12:04 | RAD ---
EXAM: CT Head without IV contrast INDICATION: Reason: Recent head trauma, concern for bleed / Spl. Instructions: / History: TECHNIQUE: Multi-detector row CT images were obtained of the head without the use of IV contrast. All CT scans performed at this facility utilize dose optimization techniques as appropriate to the exam, including the following: Automated exposure control and adjustment of the mA and/or KV according to patient size (this includes techniques or standardized protocols for targeted exams where dose is indication/reason for exam). COMPARISON: None FINDINGS: BRAIN PARENCHYMA: No evidence of acute intraparenchymal hemorrhage or infarct. No abnormal parenchymal density or mass. VENTRICLES & EXTRA-AXIAL SPACES: Ventricles are within normal limits. Basilar cisterns are patent. No pathologic extra-axial fluid collection or mass. ORBITS: Orbital contents are unremarkable. SINUSES: Visualized paranasal sinuses and mastoid air cells are clear. OSSEOUS & SOFT TISSUES: Calvarium and skull base are intact. Large posterior left occipital scalp hematoma is present. IMPRESSION: Posterior left scalp hematoma without associated skull fracture or acute intracranial pathology. Electronically signed by: Surjit Almanzar MD (01/12/2020 12:01 PM) [id number]
[2020-01-12 12:45] LABS: BASO # 0.1 x10^3/uL (0.0-0.2); BASO % 1 % (0-3); EOS % 0 % (0-3); HEMATOCRIT 42.4 % (36.0-47.0); HEMOGLOBIN 14.9 g/dL (12.0-15.5); LYMPH # 1.5 x10^3/uL (1.0-4.8); LYMPH % 14 % (24-48); MEAN CORPUSCULAR HEMOGLOBIN 34 pg (25-35); MEAN CORPUSCULAR HGB CONC 35 g/dL (31-37); MEAN CORPUSCULAR VOLUME 96 fL (79-100); MONO # 0.7 x10^3/uL (0.0-1.1); MONO % 7 % (0-9); NEUT # 8.3 x10^3/uL (1.8-7.7); NEUT % 78 % (31-73); PLATELET COUNT 196 x10^3/uL (140-400); RED CELL DISTRIBUTION WIDTH 14.4 % (11.5-14.5); WHITE BLOOD COUNT 10.6 x10^3/uL (4.0-11.0)
--- NOTE | 2020-01-12 12:52 | PDOC ---
PROGRESS NOTES Date of Service: DATE: 01/12/20 TIME: 12:49 Subjective Subjective c/o headache, vomiting Objective Objective Vital Signs Date Time Temp Pulse Resp B/P (MAP) Pulse Ox O2 Delivery O2 Flow Rate FiO2 01/12/20 11:16 97.5 72 16 183/92 (122) 98 Room Air 97.5 01/11/20 08:00 2.0 Intake and Output 01/12/20 07:00 Intake Total 300 ml Output Total 3 ml Balance 297 ml Intake Oral 300 ml Output Urine Total 2 ml Urine/Stool Mix 1 ml # Voids 4 # Bowel Movements 1 Physical Exam Abdomen: Soft, No tenderness Heart: Normal S1, Normal S2, Other (S4- 3/6 systolic murmur to KAT border) Extremities: No cyanosis, No edema General: Alert, Oriented X3, Cooperative, mild distress HEENT: Atraumatic, Mucous membr. moist/pink Lungs: Clear to auscultation, Normal air movement MUSCULOSKELETAL: Osteoarthritic changes both hands Neuro: Normal speech, Sensation intact Psych/Mental Status: Mental status NL, Mood NL Skin: No breakdown, Other (left scalp hematoma) Assessment Assessment 1. Syncope with fall with scalp hematoma. Telemetry did not show any significant arrhythmias so far. Carotid massage yesterday did not elicit carotid hypersensitivity syndrome. Recommend follow-up with primary ca rdiologist for possible loop recorder implantation. 2. HTN urgency: Blood pressure elevated. Increase hydralazine dose for better control. 3. HLP: Statins 4. CAD: s/p PCI/stents 8 yrs ago per patient. clinically stable and chest pain- free. Continue current secondary prevention measures. 5. 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 Past left occipital stroke per CT, neuropathy. Neurology team following. 7. Headache and vomiting. Agree with CT scan of the head to rule out any acute intracranial process. Plan Plan of Care Problems Medical Problems: (1) Closed head injury Status: Acute (2) Syncope Status: Acute Comment Review of Relevant I have reviewed the following items jocelyn (where applicable) has been applied. Medications Current Medications Ondansetron HCl (Zofran) 4 mg PRN Q6HRS PRN IVP NAUSEA/VOMITING Last administered on 01/12/20at 07:34; Start 01/12/20 at 02:30 Vitals/I & O Vital Sign - Last 24 Hours 01/11/20 01/11/20 01/11/20 01/11/20 15:00 19:50 20:22 20:33 Temp 97.8 97.8 97.8 97.8 Pulse 71 80 80 Resp 18 16 B/P (MAP) 112/61 (78) 178/93 (121) 178/93 Pulse Ox 95 93 O2 Delivery Room Air Room Air Room Air 01/11/20 01/12/20 01/12/20 01/12/20 23:26 03:13 07:14 08:15 Temp 98.0 97.6 98.0 97.6 Pulse 79 92 Resp 16 20 16 B/P (MAP) 175/76 (109) 204/93 (130) Pulse Ox 92 87 O2 Delivery Room Air Room Air Room Air Room Air 01/12/20 01/12/20 01/12/20 01/12/20 09:42 09:42 09:43 11:16 Temp 97.5 97.5 Pulse 92 92 92 72 Resp 16 B/P (MAP) 204/93 204/93 204/93 183/92 (122) Pulse Ox 98 O2 Delivery Room Air Intake and Output 01/11/20 01/11/20 01/12/20 15:00 23:00 07:00 Intake Total 120 ml 180 ml Output Total 3 ml Balance 120 ml 177 ml MAX MATOS MD Jan 12, 2020 12:52
[2020-01-12 12:55] LABS: CREATININE 0.6 mg/dL (0.6-1.0); GFR 94.3; POTASSIUM 3.3 mmol/L (3.5-5.1)
[2020-01-12] MEDS: PROCHLORPERAZINE 10 MG/2 ML VIAL. IV PRN (13:07)
--- NOTE | 2020-01-12 14:12 | PDOC ---
PROGRESS NOTES Date of Service DATE: 01/12/20 TIME: 14:09 Assessment Problems Medical Problems: (1) Closed head injury Status: Acute (2) Syncope Status: Acute Syncope, probably also had a concussion with her fall Idiopathic peripheral neuropathy, for which I follow her in the clinic Abnormal head CT, doubt that she had a stroke. Headache and vomiting this morning, I was not notified, patient has already had head CT, negative as reviewed below. Plan Await brain MRI, holding because of need for investigation of her previous stents. Outpatient ophthalmology evaluation Further testing per cardiology Follow-up with me as scheduled. Subjective No headache currently. Objective Vital Signs Date Time Temp Pulse Resp B/P (MAP) Pulse Ox O2 Delivery O2 Flow Rate FiO2 01/12/20 11:16 97.5 72 16 183/92 (122) 98 Room Air 97.5 01/11/20 08:00 2.0 Intake and Output 01/12/20 07:00 Intake Total 300 ml Output Total 3 ml Balance 297 ml Intake Oral 300 ml Output Urine Total 2 ml Urine/Stool Mix 1 ml # Voids 4 # Bowel Movements 1 PHYSICAL EXAM Alert. Oriented to time, place and person. PERRL. EOMI. CN: no focal findings. Muscle tone: normal. Muscle strength: 4/5 DTR: 0+ Plantar reflex: flexor Gait: not examined in bed. Sensory exam: Stocking-glove loss. No cerebellar signs elicited. Review of Relevant I have reviewed the following items jocleyn (where applicable) has been applied. Labs Laboratory Tests Test 01/12/20 12:35 White Blood Count 10.6 x10^3/uL (4.0-11.0) Red Blood Count 4.40 x10^6/uL (3.50-5.40) Hemoglobin 14.9 g/dL (12.0-15.5) Hematocrit 42.4 % (36.0-47.0) Mean Corpuscular Volume 96 fL (79-100) Mean Corpuscular Hemoglobin 34 pg (25-35) Mean Corpuscular Hemoglobin Concent 35 g/dL (31-37) Red Cell Distribution Width 14.4 % (11.5-14.5) Platelet Count 196 x10^3/uL (140-400) Neutrophils (%) (Auto) 78 % (31-73) Lymphocytes (%) (Auto) 14 % (24-48) Monocytes (%) (Auto) 7 % (0-9) Eosinophils (%) (Auto) 0 % (0-3) Basophils (%) (Auto) 1 % (0-3) Neutrophils # (Auto) 8.3 x10^3/uL (1.8-7.7) Lymphocytes # (Auto) 1.5 x10^3/uL (1.0-4.8) Monocytes # (Auto) 0.7 x10^3/uL (0.0-1.1) Eosinophils # (Auto) 0.0 x10^3/uL (0.0-0.7) Basophils # (Auto) 0.1 x10^3/uL (0.0-0.2) Sodium Level 140 mmol/L (136-145) Potassium Level 3.3 mmol/L (3.5-5.1) Chloride Level 102 mmol/L (98-107) Carbon Dioxide Level 25 mmol/L (21-32) Anion Gap 13 (6-14) Blood Urea Nitrogen 17 mg/dL (7-20) Creatinine 0.6 mg/dL (0.6-1.0) Estimated GFR (Cockcroft-Gault) 94.3 Glucose Level 163 mg/dL (70-99) Calcium Level 10.0 mg/dL (8.5-10.1) Laboratory Tests Test 01/12/20 12:35 White Blood Count 10.6 x10^3/uL (4.0-11.0) Red Blood Count 4.40 x10^6/uL (3.50-5.40) Hemoglobin 14.9 g/dL (12.0-15.5) Hematocrit 42.4 % (36.0-47.0) Mean Corpuscular Volume 96 fL (79-100) Mean Corpuscular Hemoglobin 34 pg (25-35) Mean Corpuscular Hemoglobin Concent 35 g/dL (31-37) Red Cell Distribution Width 14.4 % (11.5-14.5) Platelet Count 196 x10^3/uL (140-400) Neutrophils (%) (Auto) 78 % (31-73) Lymphocytes (%) (Auto) 14 % (24-48) Monocytes (%) (Auto) 7 % (0-9) Eosinophils (%) (Auto) 0 % (0-3) Basophils (%) (Auto) 1 % (0-3) Neutrophils # (Auto) 8.3 x10^3/uL (1.8-7.7) Lymphocytes # (Auto) 1.5 x10^3/uL (1.0-4.8) Monocytes # (Auto) 0.7 x10^3/uL (0.0-1.1) Eosinophils # (Auto) 0.0 x10^3/uL (0.0-0.7) Basophils # (Auto) 0.1 x10^3/uL (0.0-0.2) Sodium Level 140 mmol/L (136-145) Potassium Level 3.3 mmol/L (3.5-5.1) Chloride Level 102 mmol/L (98-107) Carbon Dioxide Level 25 mmol/L (21-32) Anion Gap 13 (6-14) Blood Urea Nitrogen 17 mg/dL (7-20) Creatinine 0.6 mg/dL (0.6-1.0) Estimated GFR (Cockcroft-Gault) 94.3 Glucose Level 163 mg/dL (70-99) Calcium Level 10.0 mg/dL (8.5-10.1) Medications Current Medications Labetalol HCl (Normodyne Iv Push) 10 mg 1X ONCE IVP Last administered on 01/10/20at 10:48; Start 01/10/20 at 10:45; Stop 01/10/20 at 10:46; Status DC Atorvastatin Calcium (Lipitor) 20 mg DAILY PO Last administered on 01/12/20at 09:42; Start 01/11/20 at 09:00 Hydralazine HCl (Apresoline) 25 mg BID PO Last administered on 01/12/20at 09:42; Start 01/10/20 at 21:00; Stop 01/12/20 at 12:53; Status DC Losartan Potassium (Cozaar) 50 mg DAILY PO ; Start 01/11/20 at 09:00; Stop 01/10/20 at 16:50; Status DC Metoprolol Succinate (Toprol Xl) 50 mg DAILY PO ; Start 01/11/20 at 09:00; S top 01/10/20 at 16:50; Status DC Aspirin (Ecotrin) 81 mg DAILYWBKFT PO Last administered on 01/12/20at 09:42; Start 01/11/20 at 08:00 Labetalol HCl (Normodyne Iv Push) 20 mg PRN Q2HR PRN IVP HYPERTENSION Last administered on 01/10/20at 17:08; Start 01/10/20 at 15:45 Losartan Potassium (Cozaar) 50 mg DAILY PO Last administered on 01/12/20at 09:42; Start 01/10/20 at 17:00 Metoprolol Succinate (Toprol Xl) 50 mg DAILY PO Last administered on 01/12/20at 09:43; Start 01/10/20 at 17:00 Acetaminophen (Tylenol) 650 mg PRN Q6HRS PRN PO MILD PAIN / TEMP > 100.3'F; Start 01/11/20 at 01:45 Tramadol HCl (Ultram) 50 mg PRN Q6HRS PRN PO SEVERE PAIN 7-10; Start 01/11/20 at 01:45 Fentanyl Citrate (Fentanyl 2ml Vial) 25 mcg PRN Q2HR PRN IVP PAIN; Start 01/11/20 at 01:45 Ondansetron HCl (Zofran) 4 mg PRN Q6HRS PRN IVP NAUSEA/VOMITING Last administered on 01/12/20at 07:34; Start 01/12/20 at 02:30 Prochlorperazine Edisylate (Compazine) 10 mg PRN Q6HRS PRN IV NAUSEA/VOMITING- 2ND CHOICE Last administered on 01/12/20at 13:07; Start 01/12/20 at 13:00 Hydralazine HCl (Apresoline) 50 mg BID PO ; Start 01/12/20 at 21:00 Active Scripts Active Reported Furosemide 40 Mg Tablet 1 Tab PO DAILY Duloxetine HCl 40 Mg Capsule.dr 1 Cap PO DAILY 30 Days Pantoprazole Sodium (Pantoprazole Sodium) 40 Mg Tablet.dr 40 Mg PO DAILYAC Allopurinol 300 Mg Tablet 1 Tab PO DAILY Atorvastatin Calcium 20 Mg Tablet 1 Tab PO DAILY Levothyroxine Sodium 100 Mcg Tablet 1 Tab PO DAILY Toprol XL (Metoprolol Succinate) 50 Mg Tab.er.24h 50 Mg PO DAILY Klor-Con 10 (Potassium Chloride) 10 Meq Tablet.er 1 Tab PO DAILY 30 Days Hydralazine Hcl 25 Mg Tablet 1 Tab PO BID Lyrica (Pregabalin) 300 Mg Capsule 1 Cap PO BID Losartan Potassium 50 Mg Tablet 50 Mg PO DAILY Vitals/I & O Vital Sign - Last 24 Hours 01/11/20 01/11/20 01/11/20 01/11/20 15:00 19:50 20:22 20:33 Temp 97.8 97.8 97.8 97.8 Pulse 71 80 80 Resp 18 16 B/P (MAP) 112/61 (78) 178/93 (121) 178/93 Pulse Ox 95 93 O2 Delivery Room Air Room Air Room Air 01/11/20 01/12/20 01/12/20 01/12/20 23:26 03:13 07:14 08:15 Temp 98.0 97.6 98.0 97.6 Pulse 79 92 Resp 16 20 16 B/P (MAP) 175/76 (109) 204/93 (130) Pulse Ox 92 87 O2 Delivery Room Air Room Air Room Air Room Air 01/12/20 01/12/20 01/12/20 01/12/20 09:42 09:42 09:43 11:16 Temp 97.5 97.5 Pulse 92 92 92 72 Resp 16 B/P (MAP) 204/93 204/93 204/93 183/92 (122) Pulse Ox 98 O2 Delivery Room Air Intake and Output 01/11/20 01/11/20 01/12/20 15:00 23:00 07:00 Intake Total 120 ml 180 ml Output Total 3 ml Balance 120 ml [address] Head without IV contrast INDICATION: Reason: Recent head trauma, concern for bleed / Spl. Instructions: / History: TECHNIQUE: Multi-detector row CT images were obtained of the head without the use of IV contrast. All CT scans performed at this facility utilize dose optimization techniques as appropriate to the exam, including the following: Automated exposure control and adjustment of the mA and/or KV according to patient size (this includes techniques or standardized protocols for targeted exams where dose is indication/reason for exam). COMPARISON: None FINDINGS: BRAIN PARENCHYMA: No evidence of acute intraparenchymal hemorrhage or infarct. No abnormal parenchymal density or mass. VENTRICLES & EXTRA-AXIAL SPACES: Ventricles are within normal limits. Basilar cisterns are patent. No pathologic extra-axial fluid collection or mass. ORBITS: Orbital contents are unremarkable. SINUSES: Visualized paranasal sinuses and mastoid air cells are clear. OSSEOUS & SOFT TISSUES: Calvarium and skull base are intact. Large posterior left occipital scalp hematoma is present. IMPRESSION: Posterior left scalp hematoma without associated skull fracture or acute intracranial pathology. Justicifation of Admission Dx: Justifications for Admission: Justification of Admission Dx: N/A SHAQUILLE FIORE MD Jan 12, 2020 14:12
[2020-01-12 15:20] VITALS: BP 189/89
[2020-01-12] MEDS: LABETALOL 20 MG/4 ML DISP.SYRIN. IVP PRN ×2 (18:13→21:59)
[2020-01-12 19:00] VITALS: BP 213/98
[2020-01-12 23:00] VITALS: BP 205/88
[2020-01-13 03:00] VITALS: BP 198/102
[2020-01-13] MEDS: LABETALOL 20 MG/4 ML DISP.SYRIN. IVP PRN ×2 (04:57→12:22)
[2020-01-13 06:28] LABS: CALCIUM 9.2 mg/dL (8.5-10.1); CREATININE 0.7 mg/dL (0.6-1.0)
[2020-01-13 06:55] LABS: BASO % 0 % (0-3); EOS % 0 % (0-3); HEMOGLOBIN 13.5 g/dL (12.0-15.5); LYMPH # 1.5 x10^3/uL (1.0-4.8); LYMPH % 15 % (24-48); MEAN CORPUSCULAR HEMOGLOBIN 33 pg (25-35); MEAN CORPUSCULAR HGB CONC 34 g/dL (31-37); MEAN CORPUSCULAR VOLUME 97 fL (79-100); MONO % 10 % (0-9); NEUT # 7.6 x10^3/uL (1.8-7.7); NEUT % 75 % (31-73); PLATELET COUNT 191 x10^3/uL (140-400); RED BLOOD COUNT 4.12 x10^6/uL (3.50-5.40); RED CELL DISTRIBUTION WIDTH 14.6 % (11.5-14.5); WHITE BLOOD COUNT 10.1 x10^3/uL (4.0-11.0)
[2020-01-13 07:00] VITALS: BP 178/82
[2020-01-13] MEDS: ASPIRIN ENTERIC COATED 81 MG TABLET.DR. PO SCH (08:29)
[2020-01-13] MEDS: METOPROLOL SUCC 24HR ER 50 MG TAB.ER.24H. PO SCH (08:30)
[2020-01-13] MEDS: ATORVASTATIN CALCIUM 20 MG TABLET PO SCH (08:30)
[2020-01-13] MEDS: LOSARTAN POTASSIUM 50 MG TABLET. PO SCH (08:30)
[2020-01-13] MEDS ORDERED: POTASSIUM CHLORIDE 20 MEQ TABLET.ER. PO ONE (09:15)
[2020-01-13] MEDS: POTASSIUM CHLORIDE 10MEQ 100 ML IV SCH ×4 (09:58→14:59)
--- NOTE | 2020-01-13 10:14 | PDOC ---
PROGRESS NOTES Date of Service DATE: 01/13/20 TIME: 10:13 Assessment Problems Medical Problems: (1) Closed head injury Status: Acute (2) Syncope Status: Acute Syncope, probably also had a concussion with her fall Idiopathic peripheral neuropathy, for which I follow her in the clinic Abnormal head CT, doubt that she had a stroke. Headache and vomiting this morning, I was not notified, patient has already had head CT, negative as reviewed below. Plan Await brain MRI Outpatient ophthalmology evaluation Further testing per cardiology Follow-up with me as scheduled. Discussed with daughters yesterday SNU? Subjective Headache is better. Feels a little dizzy Objective Vital Signs Date Time Temp Pulse Resp B/P (MAP) Pulse Ox O2 Delivery O2 Flow Rate FiO2 01/13/20 08:30 81 178/82 01/13/20 07:00 97.8 18 93 Room Air 97.8 Intake and Output 01/13/20 07:00 Intake Total 580 ml Balance 580 ml Intake Oral 580 ml # Voids 3 # Bowel Movements 1 PHYSICAL EXAM Alert. Oriented to time, place and person. PERRL. EOMI. CN: no focal findings. Muscle tone: normal. Muscle strength: 4/5 DTR: 0+ Plantar reflex: flexor Gait: not examined in bed. Sensory exam: Stocking-glove loss. No cerebellar signs elicited. Review of Relevant I have reviewed the following items jocelyn (where applicable) has been applied. Labs Laboratory Tests Test 01/12/20 12:35 01/13/20 05:20 White Blood Count 10.6 x10^3/uL (4.0-11.0) 10.1 x10^3/uL (4.0-11.0) Red Blood Count 4.40 x10^6/uL (3.50-5.40) 4.12 x10^6/uL (3.50-5.40) Hemoglobin 14.9 g/dL (12.0-15.5) 13.5 g/dL (12.0-15.5) Hematocrit 42.4 % (36.0-47.0) 40.0 % (36.0-47.0) Mean Corpuscular Volume 96 fL (79-100) 97 fL (79-100) Mean Corpuscular Hemoglobin 34 pg (25-35) 33 pg (25-35) Mean Corpuscular Hemoglobin Concent 35 g/dL (31-37) 34 g/dL (31-37) Red Cell Distribution Width 14.4 % (11.5-14.5) 14.6 % (11.5-14.5) Platelet Count 196 x10^3/uL (140-400) 191 x10^3/uL (140-400) Neutrophils (%) (Auto) 78 % (31-73) 75 % (31-73) Lymphocytes (%) (Auto) 14 % (24-48) 15 % (24-48) Monocytes (%) (Auto) 7 % (0-9) 10 % (0-9) Eosinophils (%) (Auto) 0 % (0-3) 0 % (0-3) Basophils (%) (Auto) 1 % (0-3) 0 % (0-3) Neutrophils # (Auto) 8.3 x10^3/uL (1.8-7.7) 7.6 x10^3/uL (1.8-7.7) Lymphocytes # (Auto) 1.5 x10^3/uL (1.0-4.8) 1.5 x10^3/uL (1.0-4.8) Monocytes # (Auto) 0.7 x10^3/uL (0.0-1.1) 1.0 x10^3/uL (0.0-1.1) Eosinophils # (Auto) 0.0 x10^3/uL (0.0-0.7) 0.0 x10^3/uL (0.0-0.7) Basophils # (Auto) 0.1 x10^3/uL (0.0-0.2) 0.0 x10^3/uL (0.0-0.2) Sodium Level 140 mmol/L (136-145) 141 mmol/L (136-145) Potassium Level 3.3 mmol/L (3.5-5.1) 3.0 mmol/L (3.5-5.1) Chloride Level 102 mmol/L (98-107) 104 mmol/L (98-107) Carbon Dioxide Level 25 mmol/L (21-32) 26 mmol/L (21-32) Anion Gap 13 (6-14) 11 (6-14) Blood Urea Nitrogen 17 mg/dL (7-20) 22 mg/dL (7-20) Creatinine 0.6 mg/dL (0.6-1.0) 0.7 mg/dL (0.6-1.0) Estimated GFR (Cockcroft-Gault) 94.3 79.0 Glucose Level 163 mg/dL (70-99) 140 mg/dL (70-99) Calcium Level 10.0 mg/dL (8.5-10.1) 9.2 mg/dL (8.5-10.1) Laboratory Tests Test 01/12/20 12:35 01/13/20 05:20 White Blood Count 10.6 x10^3/uL (4.0-11.0) 10.1 x10^3/uL (4.0-11.0) Red Blood Count 4.40 x10^6/uL (3.50-5.40) 4.12 x10^6/uL (3.50-5.40) Hemoglobin 14.9 g/dL (12.0-15.5) 13.5 g/dL (12.0-15.5) Hematocrit 42.4 % (36.0-47.0) 40.0 % (36.0-47.0) Mean Corpuscular Volume 96 fL (79-100) 97 fL (79-100) Mean Corpuscular Hemoglobin 34 pg (25-35) 33 pg (25-35) Mean Corpuscular Hemoglobin Concent 35 g/dL (31-37) 34 g/dL (31-37) Red Cell Distribution Width 14.4 % (11.5-14.5) 14.6 % (11.5-14.5) Platelet Count 196 x10^3/uL (140-400) 191 x10^3/uL (140-400) Neutrophils (%) (Auto) 78 % (31-73) 75 % (31-73) Lymphocytes (%) (Auto) 14 % (24-48) 15 % (24-48) Monocytes (%) (Auto) 7 % (0-9) 10 % (0-9) Eosinophils (%) (Auto) 0 % (0-3) 0 % (0-3) Basophils (%) (Auto) 1 % (0-3) 0 % (0-3) Neutrophils # (Auto) 8.3 x10^3/uL (1.8-7.7) 7.6 x10^3/uL (1.8-7.7) Lymphocytes # (Auto) 1.5 x10^3/uL (1.0-4.8) 1.5 x10^3/uL (1.0-4.8) Monocytes # (Auto) 0.7 x10^3/uL (0.0-1.1) 1.0 x10^3/uL (0.0-1.1) Eosinophils # (Auto) 0.0 x10^3/uL (0.0-0.7) 0.0 x10^3/uL (0.0-0.7) Basophils # (Auto) 0.1 x10^3/uL (0.0-0.2) 0.0 x10^3/uL (0.0-0.2) Sodium Level 140 mmol/L (136-145) 141 mmol/L (136-145) Potassium Level 3.3 mmol/L (3.5-5.1) 3.0 mmol/L (3.5-5.1) Chloride Level 102 mmol/L (98-107) 104 mmol/L (98-107) Carbon Dioxide Level 25 mmol/L (21-32) 26 mmol/L (21-32) Anion Gap 13 (6-14) 11 (6-14) Blood Urea Nitrogen 17 mg/dL (7-20) 22 mg/dL (7-20) Creatinine 0.6 mg/dL (0.6-1.0) 0.7 mg/dL (0.6-1.0) Estimated GFR (Cockcroft-Gault) 94.3 79.0 Glucose Level 163 mg/dL (70-99) 140 mg/dL (70-99) Calcium Level 10.0 mg/dL (8.5-10.1) 9.2 mg/dL (8.5-10.1) Medications Current Medications Labetalol HCl (Normodyne Iv Push) 10 mg 1X ONCE IVP Last administered on 01/10/20at 10:48; Start 01/10/20 at 10:45; Stop 01/10/20 at 10:46; Status DC Atorvastatin Calcium (Lipitor) 20 mg DAILY PO Last administered on 01/13/20at 08:30; Start 01/11/20 at 09:00 Hydralazine HCl (Apresoline) 25 mg BID PO Last administered on 01/12/20at 09:42; Start 01/10/20 at 21:00; Stop 01/12/20 at 12:53; Status DC Losartan Potassium (Cozaar) 50 mg DAILY PO ; Start 01/11/20 at 09:00; Stop 01/10/20 at 16:50; Status DC Metoprolol Succinate (Toprol Xl) 50 mg DAILY PO ; Start 01/11/20 at 09:00; Stop 01/10/20 at 16:50; Status DC Aspirin (Ecotrin) 81 mg DAILYWBKFT PO Last administered on 01/13/20at 08:29; Start 01/11/20 at 08:00 Labetalol HCl (Normodyne Iv Push) 20 mg PRN Q2HR PRN IVP HYPERTENSION Last administered on 01/13/20at 04:57; Start 01/10/20 at 15:45 Losartan Potassium (Cozaar) 50 mg DAILY PO Last administered on 01/13/20at 08:30; Start 01/10/20 at 17:00 Metoprolol Succinate (Toprol Xl) 50 mg DAILY PO Last administered on 01/13/20at 08:30; Start 01/10/20 at 17:00 Acetaminophen (Tylenol) 650 mg PRN Q6HRS PRN PO MILD PAIN / TEMP > 100.3'F; Start 01/11/20 at 01:45 Tramadol HCl (Ultram) 50 mg PRN Q6HRS PRN PO SEVERE PAIN 7-10; Start 01/11/20 at 01:45 Fentanyl Citrate (Fentanyl 2ml Vial) 25 mcg PRN Q2HR PRN IVP PAIN; Start 01/11/20 at 01:45 Ondansetron HCl (Zofran) 4 mg PRN Q6HRS PRN IVP NAUSEA/VOMITING Last administered on 01/12/20at 07:34; Start 01/12/20 at 02:30 Prochlorperazine Edisylate (Compazine) 10 mg PRN Q6HRS PRN IV NAUSEA/VOMITING- 2ND CHOICE Last administered on 01/12/20at 13:07; Start 01/12/20 at 13:00 Hydralazine HCl (Apresoline) 50 mg BID PO Last administered on 01/13/20at 08:29; Start 01/12/20 at 21:00 Potassium Chloride (Klor-Con) 40 meq 1X ONCE PO Last administered on 01/13/20at 09:54; Start 01/13/20 at 09:15; Stop 01/13/20 at 09:16; Status DC Potassium Chloride/Water 100 ml @ 100 mls/hr Q1H IV Last administered on 01/13/20at 09:58; Start 01/13/20 at 10:00; Stop 01/13/20 at 13:59 Active Scripts Active Reported Furosemide 40 Mg Tablet 1 Tab PO DAILY Duloxetine HCl 40 Mg Capsule.dr 1 Cap PO DAILY 30 Days Pantoprazole Sodium (Pantoprazole Sodium) 40 Mg Tablet.dr 40 Mg PO DAILYAC Allopurinol 300 Mg Tablet 1 Tab PO DAILY Atorvastatin Calcium 20 Mg Tablet 1 Tab PO DAILY Levothyroxine Sodium 100 Mcg Tablet 1 Tab PO DAILY Toprol XL (Metoprolol Succinate) 50 Mg Tab.er.24h 50 Mg PO DAILY Klor-Con 10 (Potassium Chloride) 10 Meq Tablet.er 1 Tab PO DAILY 30 Days Hydralazine Hcl 25 Mg Tablet 1 Tab PO BID Lyrica (Pregabalin) 300 Mg Capsule 1 Cap PO BID Losartan Potassium 50 Mg Tablet 50 Mg PO DAILY Vitals/I & O Vital Sign - Last 24 Hours 01/12/20 01/12/20 01/12/20 01/12/20 11:16 15:20 18:13 19:00 Temp 97.5 97.7 97.7 97.5 97.7 97.7 Pulse 72 96 96 92 Resp 16 16 18 B/P (MAP) 183/92 (122) 189/89 (122) 189/89 213/98 (136) Pulse Ox 98 92 92 O2 Delivery Room Air Room Air Room Air 01/12/20 01/12/20 01/12/20 01/12/20 20:12 21:59 21:59 23:00 Temp 97.9 97.9 Pulse 92 92 77 Resp 18 B/P (MAP) 213/98 213/98 205/88 (127) Pulse Ox 97 O2 Delivery Room Air Room Air 10/19/20 10/19/20 10/19/20 10/19/20 03:00 04:57 07:00 08:29 Temp 98.4 97.8 98.4 97.8 Pulse 84 84 81 81 Resp 20 18 B/P (MAP) 198/102 (134) 198/102 178/82 (114) 178/82 Pulse Ox 92 93 O2 Delivery Room Air Room Air 01/13/20 01/13/20 08:30 08:30 Pulse 81 81 B/P (MAP) 178/82 178/82 Intake and Output 01/12/20 01/12/20 01/13/20 15:00 23:00 07:00 Intake Total 120 ml 460 ml Balance 120 ml 460 ml Justicifation of Admission Dx: Justifications for Admission: Justification of Admission Dx: N/A SHAQUILLE FIORE MD Jan 13, 2020 10:14
[2020-01-13 10:47] VITALS: BP 179/73
--- NOTE | 2020-01-13 12:20 | RAD ---
BRAIN W/O CONTRAST Date: 01/13/2020 3:25 PM Indication: Stroke, AMS / Spl. Instructions: / History: Comparison: CT 01/12/2020. Technique: Axial DWI/ADC and sagittal T1 sequences were obtained. Findings: No acute infarct. No hydrocephalus. Patent subarachnoid cisterns. No midline shift. Posterior scalp hematoma. No Chiari malformation.. IMPRESSION: No acute infarct. No hydrocephalus. Electronically signed by: Chapincito Mei MD (01/13/2020 12:17 PM) [id number]
[2020-01-13] MEDS: PROCHLORPERAZINE 10 MG/2 ML VIAL. IV PRN ×2 (12:22→22:14)
--- NOTE | 2020-01-13 14:32 | NUR ---
SW following. Spoke with RN and reviewed chart. PT recommendation is for SNU. Pt COVID pending. Pt had MRI today. Pt on room air and oral pain medications. SW attempted to meet with pt but pt confused. Spoke with daughter Jelena ([phone]) who is agreeable to SNU for pt. Jelena to talk with her family and get back to SUSIE with the name of facility to send referral. Addendum: 01/13/20 at 1449 by HUNTER RICHARDS Jelena called back and would like referral sent for acute rehab to [facility]. SUSIE phoned and faxed referral and completed patient choice of vendor form.
[2020-01-13 15:00] VITALS: BP 169/70
--- NOTE | 2020-01-13 15:56 | NUR ---
Pt's daughter also requesting a referral be faxed to [facility]. SW called [phone] to request fax number. SUSIE LVM for admission and there was no answer by the nurses station or copy operator. SUSIE did update patient choice of vendor form.
--- NOTE | 2020-01-13 18:48 | PDOC ---
[employer] PROGRESS NOTE Date of Service DOS: DATE: 01/13/20 TIME: 18:44 Chief Complaint Chief Complaint Syncope with fall with scalp hematoma HTN urgency HLP: Statins CAD: s/p PCI/stents 8 yrs ago per patient. clinically stable and chest pain- free. Continue current secondary prevention measures. 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 Neurology team following. Hypokalemia Appreciate cardiology recommendationswill consider loop monitoring. Pending echocardiogram. Continue IV hydralazine for blood pressure control Appreciate neurology recommendations pending brain MRI for further evaluation IV potassium replacement as needed PT OT SCD and ambulation for DVT prophylaxis ADA diet Full code Discussed with RN and SW Disposition inpatient care as above Surrogate decision maker is Jelena Vazquez History of Present Illness History of Present Illness The patient is a pleasant elderly female who apparently fell. She was out for a minute or two. She struck her head. They called the ambulance. She was brought in by ambulance. Trauma activation was initiated. In the ER, we have done some CAT scans of her brain. This showing a subacute stroke. She states she has been seeing a sunflower in her eye for the last 3 months. We suspect that might be when she had her stroke. Nevertheless, I discussed the case with ER physician. We are going to admit the patient and consult Cardiology and Neurology. 01/11/2020 Patient evaluated with daughters at bedside. Patient and daughter has no history of multiple falls at home. MRI and echocardiogram is still pending. Consult PT for evaluation, she will likely need a walker upon discharge. 01/12/2020 Patient evaluated with daughters at bedside. Patient reports new onset headache this morning, with associated vomiting x2, tachycardia, elevated blood pressure. Patient has history of recent fall with head trauma evaluated with CT brain on admission that showed superficial hematoma without ICH. Current symptoms concerning for intracranial hemorrhage. Will order stat CT head. Discussed with RN. 01/13/2020 No acute events overnight. Patient seen and examined bedside. Patient's chart, labs, images were reviewed and discussed with RN Vitals/I&O Vitals/I&O: Vital Signs Date Time Temp Pulse Resp B/P (MAP) Pulse Ox O2 Delivery O2 Flow Rate FiO2 01/13/20 15:00 97.8 78 18 169/70 (103) 94 Room Air 97.8 I & O 01/12/20 01/12/20 01/13/20 15:00 23:00 07:00 Intake Total 120 ml 460 ml Balance 120 ml 460 ml Physical Exam Physical Exam: GEN: No apparent distress. Alert and oriented HEENT: Normal cephalic, atraumatic, external auditory canals are patent NECK: Supple, no JVD, no thyromegaly was noted LUNGS: Bilateral clear HEART: RRR, S1, S2 present. Peripheral pulses intact, no obvious murmurs noted ABDOMEN: Soft, nontender. Positive bowel sounds, no organomegaly, normal bowel sounds EXTREMITIES: Without clubbing, cyanosis, or edema. Pedal pulses intact. Negative Homans sign General: Alert, Oriented X3, Cooperative, mild distress Heart: Normal S1, Normal S2, Other (S4- 3/6 systolic murmur to KAT border) Lungs: Clear Abdomen: Soft, No tenderness Extremities: No cyanosis, No edema Skin: No breakdown, Other (left scalp hematoma) Labs Labs: Laboratory Tests Test 01/13/20 05:20 White Blood Count 10.1 x10^3/uL (4.0-11.0) Red Blood Count 4.12 x10^6/uL (3.50-5.40) Hemoglobin 13.5 g/dL (12.0-15.5) Hematocrit 40.0 % (36.0-47.0) Mean Corpuscular Volume 97 fL (79-100) Mean Corpuscular Hemoglobin 33 pg (25-35) Mean Corpuscular Hemoglobin Concent 34 g/dL (31-37) Red Cell Distribution Width 14.6 % (11.5-14.5) Platelet Count 191 x10^3/uL (140-400) Neutrophils (%) (Auto) 75 % (31-73) Lymphocytes (%) (Auto) 15 % (24-48) Monocytes (%) (Auto) 10 % (0-9) Eosinophils (%) (Auto) 0 % (0-3) Basophils (%) (Auto) 0 % (0-3) Neutrophils # (Auto) 7.6 x10^3/uL (1.8-7.7) Lymphocytes # (Auto) 1.5 x10^3/uL (1.0-4.8) Monocytes # (Auto) 1.0 x10^3/uL (0.0-1.1) Eosinophils # (Auto) 0.0 x10^3/uL (0.0-0.7) Basophils # (Auto) 0.0 x10^3/uL (0.0-0.2) Sodium Level 141 mmol/L (136-145) Potassium Level 3.0 mmol/L (3.5-5.1) Chloride Level 104 mmol/L (98-107) Carbon Dioxide Level 26 mmol/L (21-32) Anion Gap 11 (6-14) Blood Urea Nitrogen 22 mg/dL (7-20) Creatinine 0.7 mg/dL (0.6-1.0) Estimated GFR (Cockcroft-Gault) 79.0 Glucose Level 140 mg/dL (70-99) Calcium Level 9.2 mg/dL (8.5-10.1) Assessment and Plan Assessmemt and Plan Problems Medical Problems: (1) Closed head injury Status: Acute (2) Syncope Status: Acute Comment Review of Relevant I have reviewed the following items jocelyn (where applicable) has been applied. Medications: Current Medications Medications (Trade) Dose Ordered Sig/Keshav Route PRN Reason Start Time Stop Time Status Last Admin Dose Admin Hydralazine HCl (Apresoline) 50 mg BID PO 01/12/20 21:00 01/13/20 08:29 Potassium Chloride (Klor-Con) 40 meq 1X ONCE PO 01/13/20 09:15 01/13/20 09:16 DC 01/13/20 09:54 Potassium Chloride/Water 100 ml @ 100 mls/hr Q1H IV 01/13/20 10:00 01/13/20 13:59 DC 01/13/20 14:59 Justifications for Admission Other Justification DELMAR BYRNE MD Jan 13, 2020 18:48
[2020-01-13 19:00] VITALS: BP 159/74
--- NOTE | 2020-01-13 20:28 | PDOC ---
PROGRESS NOTES Date of Service: DATE: 01/13/20 TIME: 20:26 Subjective Subjective Headache improved, c/o dizziness Objective Objective Vital Signs Date Time Temp Pulse Resp B/P (MAP) Pulse Ox O2 Delivery O2 Flow Rate FiO2 01/13/20 19:00 97.8 78 18 159/74 (102) 95 97.8 01/13/20 15:00 Room Air Intake and Output 01/13/20 07:00 Intake Total 580 ml Balance 580 ml Intake Oral 580 ml # Voids 3 # Bowel Movements 1 Physical Exam Abdomen: Soft, No tenderness Heart: Normal S1, Normal S2, Other (S4- 3/6 systolic murmur to KAT border) Extremities: No cyanosis, No edema General: Alert, Oriented X3, Cooperative, mild distress HEENT: Atraumatic, Mucous membr. moist/pink Lungs: Clear to auscultation, Normal air movement MUSCULOSKELETAL: Osteoarthritic changes both hands Neuro: Normal speech, Sensation intact Psych/Mental Status: Mental status NL, Mood NL Skin: No breakdown, Other (left scalp hematoma) Assessment Assessment 1. Syncope with fall with scalp hematoma. Telemetry did not show any significant arrhythmias so far. Carotid massage did not elicit carotid hyperse nsitivity syndrome. 2D echo pending. Recommend follow-up with primary extension agent for possible loop recorder implantation. 2. HTN urgency: Blood pressure continues to be elevated. Increase hydralazine dose for better control. 3. HLP: Statins 4. CAD: s/p PCI/stents 8 yrs ago per patient. clinically stable and chest pain- free. Continue current secondary prevention measures. 5. 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 Past left occipital stroke per CT, neuropathy. Neurology team following. 7. Headache, per neurology team Plan Plan of Care Problems Medical Problems: (1) Closed head injury Status: Acute (2) Syncope Status: Acute Comment Review of Relevant I have reviewed the following items jocelyn (where applicable) has been applied. Labs Laboratory Tests Test 01/13/20 05:20 White Blood Count 10.1 x10^3/uL (4.0-11.0) Red Blood Count 4.12 x10^6/uL (3.50-5.40) Hemoglobin 13.5 g/dL (12.0-15.5) Hematocrit 40.0 % (36.0-47.0) Mean Corpuscular Volume 97 fL (79-100) Mean Corpuscular Hemoglobin 33 pg (25-35) Mean Corpuscular Hemoglobin Concent 34 g/dL (31-37) Red Cell Distribution Width 14.6 % (11.5-14.5) Platelet Count 191 x10^3/uL (140-400) Neutrophils (%) (Auto) 75 % (31-73) Lymphocytes (%) (Auto) 15 % (24-48) Monocytes (%) (Auto) 10 % (0-9) Eosinophils (%) (Auto) 0 % (0-3) Basophils (%) (Auto) 0 % (0-3) Neutrophils # (Auto) 7.6 x10^3/uL (1.8-7.7) Lymphocytes # (Auto) 1.5 x10^3/uL (1.0-4.8) Monocytes # (Auto) 1.0 x10^3/uL (0.0-1.1) Eosinophils # (Auto) 0.0 x10^3/uL (0.0-0.7) Basophils # (Auto) 0.0 x10^3/uL (0.0-0.2) Sodium Level 141 mmol/L (136-145) Potassium Level 3.0 mmol/L (3.5-5.1) Chloride Level 104 mmol/L (98-107) Carbon Dioxide Level 26 mmol/L (21-32) Anion Gap 11 (6-14) Blood Urea Nitrogen 22 mg/dL (7-20) Creatinine 0.7 mg/dL (0.6-1.0) Estimated GFR (Cockcroft-Gault) 79.0 Glucose Level 140 mg/dL (70-99) Calcium Level 9.2 mg/dL (8.5-10.1) Medications Current Medications Hydralazine HCl (Apresoline) 50 mg BID PO Last administered on 01/13/20at 0 8:29; Start 01/12/20 at 21:00 Potassium Chloride/Water 100 ml @ 100 mls/hr Q1H IV Last administered on 01/13/20at 14:59; Start 01/13/20 at 10:00; Stop 01/13/20 at 13:59; Status DC Potassium Chloride (Klor-Con) 40 meq 1X ONCE PO Last administered on 01/13/20at 09:54; Start 01/13/20 at 09:15; Stop 01/13/20 at 09:16; Status DC Vitals/I & O Vital Sign - Last 24 Hours 01/12/20 01/12/20 01/12/20 01/13/20 21:59 21:59 23:00 03:00 Temp 97.9 98.4 97.9 98.4 Pulse 92 92 77 84 Resp 18 20 B/P (MAP) 213/98 213/98 205/88 (127) 198/102 (134) Pulse Ox 97 92 O2 Delivery Room Air Room Air 01/13/20 01/13/20 01/13/20 01/13/20 04:57 07:00 08:00 08:29 Temp 97.8 97.8 Pulse 84 81 81 Resp 18 B/P (MAP) 198/102 178/82 (114) 178/82 Pulse Ox 93 O2 Delivery Room Air Room Air 01/13/20 01/13/20 01/13/20 01/13/20 08:30 08:30 10:47 12:22 Temp 97.8 97.8 Pulse 81 81 77 77 Resp 18 B/P (MAP) 178/82 178/82 179/73 (108) 179/73 Pulse Ox 94 O2 Delivery Room Air 01/13/20 01/13/20 15:00 19:00 Temp 97.8 97.8 97.8 97.8 Pulse 78 78 Resp 18 18 B/P (MAP) 169/70 (103) 159/74 (102) Pulse Ox 94 95 O2 Delivery Room Air Intake and Output 01/12/20 01/12/20 01/13/20 15:00 23:00 07:00 Intake Total 120 ml 460 ml Balance 120 ml 460 ml MAX MATOS MD Jan 13, 2020 20:28
[2020-01-13 23:00] VITALS: BP 179/81
[2020-01-14 04:04] VITALS: BP 205/96
[2020-01-14] MEDS: LABETALOL 20 MG/4 ML DISP.SYRIN. IVP PRN (05:53)
[2020-01-14 07:00] VITALS: BP 186/79
[2020-01-14] MEDS: ATORVASTATIN CALCIUM 20 MG TABLET PO SCH (08:35)
[2020-01-14] MEDS: LOSARTAN POTASSIUM 50 MG TABLET. PO SCH (08:35)
[2020-01-14] MEDS: METOPROLOL SUCC 24HR ER 50 MG TAB.ER.24H. PO SCH (08:35)
[2020-01-14] MEDS: ASPIRIN ENTERIC COATED 81 MG TABLET.DR. PO SCH (08:36)
[2020-01-14 10:42] VITALS: BP 156/65
[2020-01-14] MEDS ORDERED: amLODIPine BESYLATE 5 MG TABLET PO ONE (10:45)
[2020-01-14 10:56] LABS: CALCIUM 9.1 mg/dL (8.5-10.1); CREATININE 0.6 mg/dL (0.6-1.0); GFR 94.3; MAGNESIUM 2.2 mg/dL (1.8-2.4); POTASSIUM 3.5 mmol/L (3.5-5.1)
[2020-01-14 10:59] LABS: BASO % 0 % (0-3); EOS # 0.1 x10^3/uL (0.0-0.7); EOS % 1 % (0-3); HEMATOCRIT 41.4 % (36.0-47.0); HEMOGLOBIN 13.7 g/dL (12.0-15.5); LYMPH # 1.4 x10^3/uL (1.0-4.8); LYMPH % 12 % (24-48); MEAN CORPUSCULAR HEMOGLOBIN 32 pg (25-35); MEAN CORPUSCULAR HGB CONC 33 g/dL (31-37); MEAN CORPUSCULAR VOLUME 97 fL (79-100); MONO % 9 % (0-9); NEUT # 8.8 x10^3/uL (1.8-7.7); NEUT % 78 % (31-73); PLATELET COUNT 197 x10^3/uL (140-400); RED BLOOD COUNT 4.26 x10^6/uL (3.50-5.40); RED CELL DISTRIBUTION WIDTH 14.5 % (11.5-14.5); WHITE BLOOD COUNT 11.4 x10^3/uL (4.0-11.0)
--- NOTE | 2020-01-14 10:59 | NUR ---
SUSIE following. Spoke with RN and reviewed chart. SUSIE spoke with Yusuf from [facility]. Pt accepted clinically but there are no beds available today. Yusuf stated that due to the increase in COVID cases they have less bed capacity, but will have discharges/bed availability this week. SUSIE spoke with the daughter Jelena ([phone]) who stated they will wait for a bed and would like pt to go to [facility]. SUSIE provided contact information for [facility] to dtr Jelena. Discharge plan is [facility] acute rehab on 01/14 pending bed availability. SUSIE following.
--- NOTE | 2020-01-14 11:04 | PDOC ---
PROGRESS NOTES Date of Service DATE: 01/14/20 TIME: 11:03 Assessment Problems Medical Problems: (1) Closed head injury Status: Acute (2) Syncope Status: Acute Syncope, probably also had a concussion with her fall Idiopathic peripheral neuropathy, for which I follow her in the clinic Abnormal head CT, MRI negative for stroke. Postconcussion symptoms, she has had several falls and other concussions, these may take a while to resolve. Plan Outpatient ophthalmology evaluation Further testing per cardiology Follow-up with me as scheduled. SNU Discussed with daughter Subjective Does not feel like eating Objective Vital Signs Date Time Temp Pulse Resp B/P (MAP) Pulse Ox O2 Delivery O2 Flow Rate FiO2 01/14/20 10:42 97.8 78 18 156/65 (95) 95 Room Air 97.8 Intake and Output 01/14/20 07:00 Intake Total 1020 ml Balance 1020 ml Intake Oral 620 ml IV Total 400 ml # Voids 4 PHYSICAL EXAM Alert. Oriented to time, place and person. PERRL. EOMI. CN: no focal findings. Muscle tone: normal. Muscle strength: 4/5 DTR: 0+ Plantar reflex: flexor Gait: not examined in bed. Sensory exam: Stocking-glove loss. No cerebellar signs elicited. Review of Relevant I have reviewed the following items jocelyn (where applicable) has been applied. Labs Laboratory Tests Test 01/12/20 12:35 01/13/20 05:20 01/14/20 09:49 White Blood Count 10.6 x10^3/uL (4.0-11.0) 10.1 x10^3/uL (4.0-11.0) Red Blood Count 4.40 x10^6/uL (3.50-5.40) 4.12 x10^6/uL (3.50-5.40) Hemoglobin 14.9 g/dL (12.0-15.5) 13.5 g/dL (12.0-15.5) Hematocrit 42.4 % (36.0-47.0) 40.0 % (36.0-47.0) Mean Corpuscular Volume 96 fL (79-100) 97 fL (79-100) Mean Corpuscular Hemoglobin 34 pg (25-35) 33 pg (25-35) Mean Corpuscular Hemoglobin Concent 35 g/dL (31-37) 34 g/dL (31-37) Red Cell Distribution Width 14.4 % (11.5-14.5) 14.6 % (11.5-14.5) Platelet Count 196 x10^3/uL (140-400) 191 x10^3/uL (140-400) Neutrophils (%) (Auto) 78 % (31-73) 75 % (31-73) Lymphocytes (%) (Auto) 14 % (24-48) 15 % (24-48) Monocytes (%) (Auto) 7 % (0-9) 10 % (0-9) Eosinophils (%) (Auto) 0 % (0-3) 0 % (0-3) Basophils (%) (Auto) 1 % (0-3) 0 % (0-3) Neutrophils # (Auto) 8.3 x10^3/uL (1.8-7.7) 7.6 x10^3/uL (1.8-7.7) Lymphocytes # (Auto) 1.5 x10^3/uL (1.0-4.8) 1.5 x10^3/uL (1.0-4.8) Monocytes # (Auto) 0.7 x10^3/uL (0.0-1.1) 1.0 x10^3/uL (0.0-1.1) Eosinophils # (Auto) 0.0 x10^3/uL (0.0-0.7) 0.0 x10^3/uL (0.0-0.7) Basophils # (Auto) 0.1 x10^3/uL (0.0-0.2) 0.0 x10^3/uL (0.0-0.2) Sodium Level 140 mmol/L (136-145) 141 mmol/L (136-145) 139 mmol/L (136-145) Potassium Level 3.3 mmol/L (3.5-5.1) 3.0 mmol/L (3.5-5.1) 3.5 mmol/L (3.5-5.1) Chloride Level 102 mmol/L (98-107) 104 mmol/L (98-107) 102 mmol/L (98-107) Carbon Dioxide Level 25 mmol/L (21-32) 26 mmol/L (21-32) 26 mmol/L (21-32) Anion Gap 13 (6-14) 11 (6-14) 11 (6-14) Blood Urea Nitrogen 17 mg/dL (7-20) 22 mg/dL (7-20) 16 mg/dL (7-20) Creatinine 0.6 mg/dL (0.6-1.0) 0.7 mg/dL (0.6-1.0) 0.6 mg/dL (0.6-1.0) Estimated GFR (Cockcroft-Gault) 94.3 79.0 94.3 Glucose Level 163 mg/dL (70-99) 140 mg/dL (70-99) 156 mg/dL (70-99) Calcium Level 10.0 mg/dL (8.5-10.1) 9.2 mg/dL (8.5-10.1) 9.1 mg/dL (8.5-10.1) Magnesium Level 2.2 mg/dL (1.8-2.4) Laboratory Tests Test 01/14/20 09:49 Sodium Level 139 mmol/L (136-145) Potassium Level 3.5 mmol/L (3.5-5.1) Chloride Level 102 mmol/L (98-107) Carbon Dioxide Level 26 mmol/L (21-32) Anion Gap 11 (6-14) Blood Urea Nitrogen 16 mg/dL (7-20) Creatinine 0.6 mg/dL (0.6-1.0) Estimated GFR (Cockcroft-Gault) 94.3 Glucose Level 156 mg/dL (70-99) Calcium Level 9.1 mg/dL (8.5-10.1) Magnesium Level 2.2 mg/dL (1.8-2.4) Medications Current Medications Labetalol HCl (Normodyne Iv Push) 10 mg 1X ONCE IVP Last administered on at 10:48; Start 01/10/20 at 10:45; Stop 01/10/20 at 10:46; Status DC Atorvastatin Calcium (Lipitor) 20 mg DAILY PO Last administered on 01/14/20at 08:35; Start 01/11/20 at 09:00 Hydralazine HCl (Apresoline) 25 mg BID PO Last administered on 01/12/20at 09:42; Start 01/10/20 at 21:00; Stop 01/12/20 at 12:53; Status DC Losartan Potassium (Cozaar) 50 mg DAILY PO ; Start 01/11/20 at 09:00; Stop 01/10/20 at 16:50; Status DC Metoprolol Succinate (Toprol Xl) 50 mg DAILY PO ; Start 01/11/20 at 09:00; Stop 01/10/20 at 16:50; Status DC Aspirin (Ecotrin) 81 mg DAILYWBKFT PO Last administered on 01/14/20at 08:36; Start 01/11/20 at 08:00 Labetalol HCl (Normodyne Iv Push) 20 mg PRN Q2HR PRN IVP HYPERTENSION Last administered on 01/14/20at 05:53; Start 01/10/20 at 15:45 Losartan Potassium (Cozaar) 50 mg DAILY PO Last administered on 01/14/20at 08:35; Start 01/10/20 at 17:00 Metoprolol Succinate (Toprol Xl) 50 mg DAILY PO Last administered on 01/14/20at 08:35; Start 01/10/20 at 17:00 Acetaminophen (Tylenol) 650 mg PRN Q6HRS PRN PO MILD PAIN / TEMP > 100.3'F; Start 01/11/20 at 01:45 Tramadol HCl (Ultram) 50 mg PRN Q6HRS PRN PO SEVERE PAIN 7-10 Last administered on 01/13/20at 22:13; Start 01/11/20 at 01:45 Fentanyl Citrate (Fentanyl 2ml Vial) 25 mcg PRN Q2HR PRN IVP PAIN; Start 01/11/20 at 01:45 Ondansetron HCl (Zofran) 4 mg PRN Q6HRS PRN IVP NAUSEA/VOMITING Last admini stered on 01/12/20at 07:34; Start 01/12/20 at 02:30 Prochlorperazine Edisylate (Compazine) 10 mg PRN Q6HRS PRN IV NAUSEA/VOMITING- 2ND CHOICE Last administered on 01/13/20at 22:14; Start 01/12/20 at 13:00 Hydralazine HCl (Apresoline) 50 mg BID PO Last administered on 01/13/20at 08:29; Start 01/12/20 at 21:00; Stop 01/13/20 at 20:29; Status DC Potassium Chloride (Klor-Con) 40 meq 1X ONCE PO Last administered on 01/13/20at 09:54; Start 01/13/20 at 09:15; Stop 01/13/20 at 09:16; Status DC Potassium Chloride/Water 100 ml @ 100 mls/hr Q1H IV Last administered on 01/13/20at 14:59; Start 01/13/20 at 10:00; Stop 01/13/20 at 13:59; Status DC Hydralazine HCl (Apresoline) 75 mg BID PO Last administered on 01/14/20at 08:35; Start 01/13/20 at 21:00 Amlodipine Besylate (Norvasc) 5 mg 1X ONCE PO ; Start 01/14/20 at 10:45; Stop 01/14/20 at 10:51; Status DC Active Scripts Active Reported Furosemide 40 Mg Tablet 1 Tab PO DAILY Duloxetine HCl 40 Mg Capsule.dr 1 Cap PO DAILY 30 Days Pantoprazole Sodium (Pantoprazole Sodium) 40 Mg Tablet.dr 40 Mg PO DAILYAC Allopurinol 300 Mg Tablet 1 Tab PO DAILY Atorvastatin Calcium 20 Mg Tablet 1 Tab PO DAILY Levothyroxine Sodium 100 Mcg Tablet 1 Tab PO DAILY Toprol XL (Metoprolol Succinate) 50 Mg Tab.er.24h 50 Mg PO DAILY Klor-Con 10 (Potassium Chloride) 10 Meq Tablet.er 1 Tab PO DAILY 30 Days Hydralazine Hcl 25 Mg Tablet 1 Tab PO BID Lyrica (Pregabalin) 300 Mg Capsule 1 Cap PO BID Losartan Potassium 50 Mg Tablet 50 Mg PO DAILY Vitals/I & O Vital Sign - Last 24 Hours 01/13/20 01/13/20 01/13/20 01/13/20 12:22 15:00 19:00 20:05 Temp 97.8 97.8 97.8 97.8 Pulse 77 78 78 Resp 18 18 B/P (MAP) 179/73 169/70 (103) 159/74 (102) Pulse Ox 94 95 O2 Delivery Room Air Room Air 01/13/20 01/13/20 01/13/20 01/14/20 22:13 22:13 23:00 00:10 Temp 98.7 98.7 Pulse 78 84 Resp 18 16 18 B/P (MAP) 159/74 179/81 (113) Pulse Ox 95 93 95 O2 Delivery Room Air Room Air 01/14/20 01/14/20 01/14/20 01/14/20 03:30 04:04 05:53 07:00 Temp 97.6 98.4 97.6 98.4 Pulse 86 86 76 Resp 18 18 B/P (MAP) 205/96 (132) 205/96 186/79 (114) Pulse Ox 95 94 O2 Delivery Room Air Room Air Room Air 01/14/20 01/14/20 01/14/20 01/14/20 08:35 08:35 08:35 10:42 Temp 97.8 97.8 Pulse 76 76 76 78 Resp 18 B/P (MAP) 186/79 186/79 186/79 156/65 (95) Pulse Ox 95 O2 Delivery Room Air Intake and Output 01/13/20 01/13/20 01/14/20 15:00 23:00 07:00 Intake Total 600 ml 300 ml 120 ml Balance 600 ml 300 ml 120 ml Images Additional sequences submitted for interpretation. No acute findings. Mild chronic small vessel ischemic disease and mild generalized cerebral volume loss. Electronically signed by: Marina Hathaway MD (01/14/2020 10:49 AM) DICTATED AND SIGNED BY: MARINA HATHAWAY MD DATE: 01/14/20 1049 CC: SHAQUILLE FIORE MD; LUCRETIA COTE III DO; MAX MATOS MD; SHAQUILLE FREIRE ~ BRAIN W/O CONTRAST Date: 01/13/2020 3:25 PM Indication: Stroke, AMS / Spl. Instructions: / History: Comparison: CT 01/12/2020. Technique: Axial DWI/ADC and sagittal T1 sequences were obtained. Findings: No acute infarct. No hydrocephalus. Patent subarachnoid cisterns. No midline shift. Posterior scalp hematoma. No Chiari malformation.. IMPRESSION: No acute infarct. No hydrocephalus. Justicifation of Admission Dx: Justifications for Admission: Justification of Admission Dx: N/A SHAQUILLE FIORE MD Jan 14, 2020 11:04
--- NOTE | 2020-01-14 11:26 | CARD ---
MR#: [id number] Date of Study: 01/13/2020 Ordering Physician: GEORGETTE PEÑALOZA, Referring Physician: GEORGETTE PEÑALOZA, Tech: Clara Jernigan ISAAC APPROVED REPORT EXAM: Two-dimensional and M-mode echocardiogram with Doppler and color Doppler. Other Information Quality : Good INDICATION Syncope History- TAVR 2D DIMENSIONS RVDd3.0 (2.9-3.5cm)Left Atrium(2D)4.0 (1.6-4.0cm) IVSd0.9 (0.7-1.1cm)Aortic Root(2D)2.6 (2.0-3.7cm) LVDd4.8 (3.9-5.9cm)LVOT Diameter2.0 (1.8-2.4cm) PWd0.9 (0.7-1.1cm)LVDs3.0 (2.5-4.0cm) FS (%) 37.1 %SV70.8 ml LVEF(%)65.0 (>50%) Aortic Valve AoV Peak Garrett.164.3cm/sAoV VTI34.9cm AO Peak GR.10.8mmHgLVOT Peak Garrett.158.2cm/s AO Mean GR.6mmHgAVA (VMAX)3.02cm2 MARGARITA (VTI)3.00cm2 Mitral Valve MV E Zbpuqbyn945.0cm/sMV DECEL OBAS977hi MV A Tjdpueqb301.6cm/sE/A Ratio1.0 Tricuspid Valve TR P. Qipinkwy510ld/sRAP OBJPABTS7prKm TR Peak Gr.78mcQnLTIM34vyBc Pulmonary Vein S1 Tfhulwqr77.5cm/sD2 Tohtbdix822.1cm/s LEFT VENTRICLE The left ventricle is normal size. There is normal left ventricular wall thickness. The left ventricu lar systolic function is normal and the ejection fraction is within normal range. The Ejection Fracti on is 60-65%. There is normal LV segmental wall motion. Transmitral Doppler flow pattern is Grade II- pseudonormal filling dynamics. RIGHT VENTRICLE The right ventricle is normal size. The right ventricular systolic function is normal. ATRIA The left atrium is mildly dilated. The right atrium is mildly dilated. The interatrial septum is inta ct with no evidence for an atrial septal defect or patent foramen ovale as noted on 2-D or Doppler im aging. AORTIC VALVE The aortic valve is not well visualized but appears to be functioning normally by Doppler interrogati on. Doppler and Color Flow revealed no significant aortic regurgitation. There is no significant aort ic valvular stenosis. Patient has a history of a TAVR procedure. MITRAL VALVE The mitral valve is moderately thickened but opens well. Mitral annular calcification is moderate to severe. There is no evidence of mitral valve prolapse. There is no mitral valve stenosis. Doppler and Color-flow revealed mild to moderate mitral regurgitation. TRICUSPID VALVE The tricuspid valve is normal in structure and function. Doppler and Color Flow revealed mild to mode rate tricuspid regurgitation. There is severe pulmonary hypertension. The PA pressure was estimated a t 70 mmHg. There is no tricuspid valve stenosis. PULMONIC VALVE The pulmonic valve is not well visualized. Doppler and Color Flow revealed no pulmonic valvular regur gitation. There is no pulmonic valvular stenosis. GREAT VESSELS The aortic root is normal in size. The ascending aorta is not well seen. The IVC is normal in size an d collapses <50% with inspiration. PERICARDIAL EFFUSION There is no evidence of significant pericardial effusion. Critical Notification Critical Value: No <Conclusion> The left ventricular systolic function is normal and the ejection fraction is within normal range. Th e Ejection Fraction is 60-65%. There is normal LV segmental wall motion. Doppler and Color-flow revealed mild to moderate mitral regurgitation. Doppler and Color Flow revealed mild to moderate tricuspid regurgitation. There is severe pulmonary h ypertension. The PA pressure was estimated at 70 mmHg. Signed by : Manish Woods, Electronically Approved : 01/14/2020 11:26:11
--- NOTE | 2020-01-14 12:34 | PDOC ---
GEORGETTE PEÑALOZA INDUSTRIAL ORGANIZATION MANAGER 01/14/20 1233: CARDIO Progress Notes Date and Time Date of Service 01/14/2020 Time of Evaluation 1100 Subjective Subjective: No Chest Pain, No shortness of breath, No Palpitations Vitals Vitals Vital Signs Date Time Temp Pulse Resp B/P (MAP) Pulse Ox O2 Delivery O2 Flow Rate FiO2 01/14/20 12:16 78 156/65 01/14/20 10:42 97.8 18 95 Room Air 97.8 Weight Weight [ ] Input and Output Intake and Output Intake and Output 01/14/20 07:00 Intake Total 1020 ml Balance 1020 ml Intake Oral 620 ml IV Total 400 ml # Voids 4 Laboratory Labs Laboratory Tests Test 01/14/20 09:49 White Blood Count 11.4 x10^3/uL (4.0-11.0) Red Blood Count 4.26 x10^6/uL (3.50-5.40) Hemoglobin 13.7 g/dL (12.0-15.5) Hematocrit 41.4 % (36.0-47.0) Mean Corpuscular Volume 97 fL (79-100) Mean Corpuscular Hemoglobin 32 pg (25-35) Mean Corpuscular Hemoglobin Concent 33 g/dL (31-37) Red Cell Distribution Width 14.5 % (11.5-14.5) Platelet Count 197 x10^3/uL (140-400) Neutrophils (%) (Auto) 78 % (31-73) Lymphocytes (%) (Auto) 12 % (24-48) Monocytes (%) (Auto) 9 % (0-9) Eosinophils (%) (Auto) 1 % (0-3) Basophils (%) (Auto) 0 % (0-3) Neutrophils # (Auto) 8.8 x10^3/uL (1.8-7.7) Lymphocytes # (Auto) 1.4 x10^3/uL (1.0-4.8) Monocytes # (Auto) 1.0 x10^3/uL (0.0-1.1) Eosinophils # (Auto) 0.1 x10^3/uL (0.0-0.7) Basophils # (Auto) 0.0 x10^3/uL (0.0-0.2) Sodium Level 139 mmol/L (136-145) Potassium Level 3.5 mmol/L (3.5-5.1) Chloride Level 102 mmol/L (98-107) Carbon Dioxide Level 26 mmol/L (21-32) Anion Gap 11 (6-14) Blood Urea Nitrogen 16 mg/dL (7-20) Creatinine 0.6 mg/dL (0.6-1.0) Estimated GFR (Cockcroft-Gault) 94.3 Glucose Level 156 mg/dL (70-99) Calcium Level 9.1 mg/dL (8.5-10.1) Magnesium Level 2.2 mg/dL (1.8-2.4) Physical Exam HEENT: Neck Supple W Full Motion Chest: Symmetric LUNGS: Clear to Auscultation Heart: RRR (SR) Abdomen: Soft N/T Extremities: No Edema, No Calf Tenderness Neurology: alert, oriented, follow commands Assessment Assessment 1. Syncope with fall with scalp hematoma. No CSH, orthostasis. No arrhythmia so far 2. HTN urgency: labile 3. HLP: Statins 4. CAD: s/p PCI/stents 8 yrs ago per patient. clinically stable and chest pain- free. Continue current secondary prevention measures. 5. 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 Past left occipital stroke per CT, neuropathy. Neurology team following. 7. Headache, per neurology team Recommendations 1. Recommend follow-up with primary valve lapper for possible loop recorder implantation. 2. If no recent stress test then may need one given her increasing fatigue and cardiac risk factors 3. Continue secondary prevention measures 4. Continue current BP regimen. Norvasc x1. Increase losartan moving forward HBPM ,discussed with daughter Justicifation of Admission Dx: Justifications for Admission: Justification of Admission Dx: N/A MAX MATOS MD 01/14/20 1905: CARDIO Progress Notes Assessment Assessment Patient seen and examined. Agree with JEWELRY CONSULTANT's assessment and plan. Tele did not show any significant arrhythmias CAD clinically stable Plan outpatient event monitor with primary valve lapper at GEORGETTE PEÑALOZA APRN Jan 14, 2020 12:33 MAX MATOS MD Jan 14, 2020 19:05
--- NOTE | 2020-01-14 14:22 | PDOC ---
[facility] PROGRESS NOTE Date of Service DOS: DATE: 01/14/20 TIME: 14:19 Chief Complaint Chief Complaint Syncope with fall with scalp hematoma HTN urgency HLP: Statins CAD: s/p PCI/stents 8 yrs ago per patient. clinically stable and chest pain- free. Continue current secondary prevention measures. 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 Neurology team following. Hypokalemia Echo on 01/14/20 showing severe pulmonary HTN Appreciate cardiology recommendationswill consider loop monitoring. Continue IV hydralazine for blood pressure control Appreciate neurology recommendations - IV potassium replacement as needed PT OT Patient will need outpatient ophthalmology evaluation SCD and ambulation for DVT prophylaxis ADA diet Full code Discussed with RN and SW Disposition inpatient care as above Surrogate decision maker is Jelena Vazquez History of Present Illness History of Present Illness The patient is a pleasant elderly female who apparently fell. She was out for a minute or two. She struck her head. They called the ambulance. She was brought in by ambulance. Trauma activation was initiated. In the ER, we have done some CAT scans of her brain. This showing a subacute stroke. She states she has been seeing a sunflower in her eye for the last 3 months. We suspect that might be when she had her stroke. Nevertheless, I discussed the case with ER physician. We are going to admit the patient and consult Cardiology and Neurology. 01/11/2020 Patient evaluated with daughters at bedside. Patient and daughter has no history of multiple falls at home. MRI and echocardiogram is still pending. Consult PT for evaluation, she will likely need a walker upon discharge. 01/12/2020 Patient evaluated with daughters at bedside. Patient reports new onset headache this morning, with associated vomiting x2, tachycardia, elevated blood pressure. Patient has history of recent fall with head trauma evaluated with CT brain on admission that showed superficial hematoma without ICH. Current symptoms concerning for intracranial hemorrhage. Will order stat CT head. Discussed with RN. 01/13/2020 No acute events overnight. Patient seen and examined bedside. Patient's chart, labs, images were reviewed and discussed with RN 01/14/2020 No acute events overnight. Patient continues to have elevated blood pressures but currently asymptomatic. Patient's chart, labs, images were reviewed and discussed with RN Vitals/I&O Vitals/I&O: Vital Signs Date Time Temp Pulse Resp B/P (MAP) Pulse Ox O2 Delivery O2 Flow Rate FiO2 01/14/20 12:16 78 156/65 01/14/20 10:42 97.8 18 95 Room Air 97.8 I & O 01/13/20 01/13/20 01/14/20 15:00 23:00 07:00 Intake Total 600 ml 300 ml 120 ml Balance 600 ml 300 ml 120 ml Physical Exam Physical Exam: GEN: No apparent distress. Alert and oriented HEENT: Normal cephalic, atraumatic, external auditory canals are patent NECK: Supple, no JVD, no thyromegaly was noted LUNGS: Bilateral clear HEART: RRR, S1, S2 present. Peripheral pulses intact, no obvious murmurs noted ABDOMEN: Soft, nontender. Positive bowel sounds, no organomegaly, normal bowel sounds EXTREMITIES: Without clubbing, cyanosis, or edema. Pedal pulses intact. Negative Homans sign General: Alert, Oriented X3, Cooperative, mild distress Heart: Normal S1, Normal S2, Other (S4- 3/6 systolic murmur to KAT border) Lungs: Clear Abdomen: Soft, No tenderness Extremities: No cyanosis, No edema Skin: No breakdown, Other (left scalp hematoma) Labs Labs: Laboratory Tests Test 01/14/20 09:49 White Blood Count 11.4 x10^3/uL (4.0-11.0) Red Blood Count 4.26 x10^6/uL (3.50-5.40) Hemoglobin 13.7 g/dL (12.0-15.5) Hematocrit 41.4 % (36.0-47.0) Mean Corpuscular Volume 97 fL (79-100) Mean Corpuscular Hemoglobin 32 pg (25-35) Mean Corpuscular Hemoglobin Concent 33 g/dL (31-37) Red Cell Distribution Width 14.5 % (11.5-14.5) Platelet Count 197 x10^3/uL (140-400) Neutrophils (%) (Auto) 78 % (31-73) Lymphocytes (%) (Auto) 12 % (24-48) Monocytes (%) (Auto) 9 % (0-9) Eosinophils (%) (Auto) 1 % (0-3) Basophils (%) (Auto) 0 % (0-3) Neutrophils # (Auto) 8.8 x10^3/uL (1.8-7.7) Lymphocytes # (Auto) 1.4 x10^3/uL (1.0-4.8) Monocytes # (Auto) 1.0 x10^3/uL (0.0-1.1) Eosinophils # (Auto) 0.1 x10^3/uL (0.0-0.7) Basophils # (Auto) 0.0 x10^3/uL (0.0-0.2) Sodium Level 139 mmol/L (136-145) Potassium Level 3.5 mmol/L (3.5-5.1) Chloride Level 102 mmol/L (98-107) Carbon Dioxide Level 26 mmol/L (21-32) Anion Gap 11 (6-14) Blood Urea Nitrogen 16 mg/dL (7-20) Creatinine 0.6 mg/dL (0.6-1.0) Estimated GFR (Cockcroft-Gault) 94.3 Glucose Level 156 mg/dL (70-99) Calcium Level 9.1 mg/dL (8.5-10.1) Magnesium Level 2.2 mg/dL (1.8-2.4) Assessment and Plan Assessmemt and Plan Problems Medical Problems: (1) Closed head injury Status: Acute (2) Syncope Status: Acute Comment Review of Relevant I have reviewed the following items jocelyn (where applicable) has been applied. Medications: Current Medications Medications (Trade) Dose Ordered Sig/Keshav Route PRN Reason Start Time Stop Time Status Last Admin Dose Admin Hydralazine HCl (Apresoline) 75 mg BID PO 01/13/20 21:00 01/14/20 08:35 Amlodipine Besylate (Norvasc) 5 mg 1X ONCE PO 01/14/20 10:45 01/14/20 10:51 DC 01/14/20 12:16 Justifications for Admission Other Justification DELMAR BYRNE MD Jan 14, 2020 14:22
[2020-01-14 15:00] VITALS: BP 142/79
[2020-01-14 19:00] VITALS: BP 217/94
[2020-01-14 23:00] VITALS: BP 188/77
[2020-01-15] VITALS (7 sets, daily range): BP systolic 118–216; BP diastolic 64–98
[2020-01-15] MEDS: LABETALOL 20 MG/4 ML DISP.SYRIN. IVP PRN ×2 (04:13→15:58)
[2020-01-15 05:57] LABS: BASO % 0 % (0-3); EOS # 0.2 x10^3/uL (0.0-0.7); EOS % 2 % (0-3); HEMATOCRIT 41.8 % (36.0-47.0); HEMOGLOBIN 14.3 g/dL (12.0-15.5); LYMPH # 1.7 x10^3/uL (1.0-4.8); LYMPH % 15 % (24-48); MEAN CORPUSCULAR HEMOGLOBIN 33 pg (25-35); MEAN CORPUSCULAR HGB CONC 34 g/dL (31-37); MEAN CORPUSCULAR VOLUME 97 fL (79-100); MONO # 1.2 x10^3/uL (0.0-1.1); MONO % 11 % (0-9); NEUT # 8.1 x10^3/uL (1.8-7.7); NEUT % 72 % (31-73); PLATELET COUNT 204 x10^3/uL (140-400); RED BLOOD COUNT 4.32 x10^6/uL (3.50-5.40); RED CELL DISTRIBUTION WIDTH 14.2 % (11.5-14.5); WHITE BLOOD COUNT 11.2 x10^3/uL (4.0-11.0)
[2020-01-15 06:23] LABS: CALCIUM 9.2 mg/dL (8.5-10.1); CREATININE 0.6 mg/dL (0.6-1.0); GFR 94.3; POTASSIUM 3.1 mmol/L (3.5-5.1)
[2020-01-15] MEDS ORDERED: POTASSIUM CHLORIDE 20 MEQ TABLET.ER. PO ONE ×2 (08:15→12:00)
[2020-01-15] MEDS ORDERED: amLODIPine BESYLATE 10 MG TABLET PO SCH (09:00)
[2020-01-15] MEDS ORDERED: LOSARTAN POTASSIUM 50 MG TABLET. PO SCH ×2 (09:00→12:00)
--- NOTE | 2020-01-15 09:58 | PDOC ---
PROGRESS NOTES Date of Service DATE: 01/15/20 TIME: 09:56 Assessment Problems Medical Problems: (1) Closed head injury Status: Acute (2) Syncope Status: Acute Syncope, probably also had a concussion with her fall Idiopathic peripheral neuropathy, for which I follow her in the clinic Abnormal head CT, MRI negative for stroke. Postconcussion symptoms, she has had several falls and other concussions, these may take a while to resolve. I am also worried about some component of dementia Plan Outpatient ophthalmology evaluation Further testing per cardiology Follow-up with me as scheduled. Awaiting transfer to [facility] Subjective Still does not have a good appetite Objective Vital Signs Date Time Temp Pulse Resp B/P (MAP) Pulse Ox O2 Delivery O2 Flow Rate FiO2 01/15/20 07:00 98.7 80 18 186/80 (115) 94 Room Air 98.7 Intake and Output 01/15/20 07:00 Intake Total 500 ml Output Total 100 ml Balance 400 ml Intake Oral 500 ml Output Urine Total 100 ml PHYSICAL EXAM Alert. Oriented to time, place and person. PERRL. EOMI. CN: no focal findings. Muscle tone: normal. Muscle strength: 4/5 DTR: 0+ Plantar reflex: flexor Gait: not examined in bed. Sensory exam: Stocking-glove loss. No cerebellar signs elicited. Review of Relevant I have reviewed the following items jocelyn (where applicable) has been applied. Labs Laboratory Tests Test 01/14/20 09:49 01/15/20 05:15 White Blood Count 11.4 x10^3/uL (4.0-11.0) 11.2 x10^3/uL (4.0-11.0) Red Blood Count 4.26 x10^6/uL (3.50-5.40) 4.32 x10^6/uL (3.50-5.40) Hemoglobin 13.7 g/dL (12.0-15.5) 14.3 g/dL (12.0-15.5) Hematocrit 41.4 % (36.0-47.0) 41.8 % (36.0-47.0) Mean Corpuscular Volume 97 fL (79-100) 97 fL (79-100) Mean Corpuscular Hemoglobin 32 pg (25-35) 33 pg (25-35) Mean Corpuscular Hemoglobin Concent 33 g/dL (31-37) 34 g/dL (31-37) Red Cell Distribution Width 14.5 % (11.5-14.5) 14.2 % (11.5-14.5) Platelet Count 197 x10^3/uL (140-400) 204 x10^3/uL (140-400) Neutrophils (%) (Auto) 78 % (31-73) 72 % (31-73) Lymphocytes (%) (Auto) 12 % (24-48) 15 % (24-48) Monocytes (%) (Auto) 9 % (0-9) 11 % (0-9) Eosinophils (%) (Auto) 1 % (0-3) 2 % (0-3) Basophils (%) (Auto) 0 % (0-3) 0 % (0-3) Neutrophils # (Auto) 8.8 x10^3/uL (1.8-7.7) 8.1 x10^3/uL (1.8-7.7) Lymphocytes # (Auto) 1.4 x10^3/uL (1.0-4.8) 1.7 x10^3/uL (1.0-4.8) Monocytes # (Auto) 1.0 x10^3/uL (0.0-1.1) 1.2 x10^3/uL (0.0-1.1) Eosinophils # (Auto) 0.1 x10^3/uL (0.0-0.7) 0.2 x10^3/uL (0.0-0.7) Basophils # (Auto) 0.0 x10^3/uL (0.0-0.2) 0.0 x10^3/uL (0.0-0.2) Sodium Level 139 mmol/L (136-145) 136 mmol/L (136-145) Potassium Level 3.5 mmol/L (3.5-5.1) 3.1 mmol/L (3.5-5.1) Chloride Level 102 mmol/L (98-107) 101 mmol/L (98-107) Carbon Dioxide Level 26 mmol/L (21-32) 24 mmol/L (21-32) Anion Gap 11 (6-14) 11 (6-14) Blood Urea Nitrogen 16 mg/dL (7-20) 16 mg/dL (7-20) Creatinine 0.6 mg/dL (0.6-1.0) 0.6 mg/dL (0.6-1.0) Estimated GFR (Cockcroft-Gault) 94.3 94.3 Glucose Level 156 mg/dL (70-99) 135 mg/dL (70-99) Calcium Level 9.1 mg/dL (8.5-10.1) 9.2 mg/dL (8.5-10.1) Magnesium Level 2.2 mg/dL (1.8-2.4) Laboratory Tests Test 01/15/20 05:15 White Blood Count 11.2 x10^3/uL (4.0-11.0) Red Blood Count 4.32 x10^6/uL (3.50-5.40) Hemoglobin 14.3 g/dL (12.0-15.5) Hematocrit 41.8 % (36.0-47.0) Mean Corpuscular Volume 97 fL (79-100) Mean Corpuscular Hemoglobin 33 pg (25-35) Mean Corpuscular Hemoglobin Concent 34 g/dL (31-37) Red Cell Distribution Width 14.2 % (11.5-14.5) Platelet Count 204 x10^3/uL (140-400) Neutrophils (%) (Auto) 72 % (31-73) Lymphocytes (%) (Auto) 15 % (24-48) Monocytes (%) (Auto) 11 % (0-9) Eosinophils (%) (Auto) 2 % (0-3) Basophils (%) (Auto) 0 % (0-3) Neutrophils # (Auto) 8.1 x10^3/uL (1.8-7.7) Lymphocytes # (Auto) 1.7 x10^3/uL (1.0-4.8) Monocytes # (Auto) 1.2 x10^3/uL (0.0-1.1) Eosinophils # (Auto) 0.2 x10^3/uL (0.0-0.7) Basophils # (Auto) 0.0 x10^3/uL (0.0-0.2) Sodium Level 136 mmol/L (136-145) Potassium Level 3.1 mmol/L (3.5-5.1) Chloride Level 101 mmol/L (98-107) Carbon Dioxide Level 24 mmol/L (21-32) Anion Gap 11 (6-14) Blood Urea Nitrogen 16 mg/dL (7-20) Creatinine 0.6 mg/dL (0.6-1.0) Estimated GFR (Cockcroft-Gault) 94.3 Glucose Level 135 mg/dL (70-99) Calcium Level 9.2 mg/dL (8.5-10.1) Medications Current Medications Labetalol HCl (Normodyne Iv Push) 10 mg 1X ONCE IVP Last administered on 01/10/20at 10:48; Start 01/10/20 at 10:45; Stop 01/10/20 at 10:46; Status DC Atorvastatin Calcium (Lipitor) 20 mg DAILY PO Last administered on 01/14/20at 08:35; Start 01/11/20 at 09:00 Hydralazine HCl (Apresoline) 25 mg BID PO Last administered on 01/12/20at 09:42; Start 01/10/20 at 21:00; Stop 01/12/20 at 12:53; Status DC Losartan Potassium (Cozaar) 50 mg DAILY PO ; Start 01/11/20 at 09:00; Stop 01/10/20 at 16:50; Status DC Metoprolol Succinate (Toprol Xl) 50 mg DAILY PO ; Start 01/11/20 at 09:00; Stop 01/10/20 at 16:50; Status DC Aspirin (Ecotrin) 81 mg DAILYWBKFT PO Last administered on 01/14/20at 08:36; Start 01/11/20 at 08:00 Labetalol HCl (Normodyne Iv Push) 20 mg PRN Q2HR PRN IVP HYPERTENSION Last administered on 01/15/20at 04:13; Start 01/10/20 at 15:45 Losartan Potassium (Cozaar) 50 mg DAILY PO Last administered on 01/14/20at 08:35; Start 01/10/20 at 17:00; Stop 01/14/20 at 12:33; Status DC Metoprolol Succinate (Toprol Xl) 50 mg DAILY PO Last administered on 01/14/20at 08:35; Start 01/10/20 at 17:00; Stop 01/15/20 at 08:27; Status DC Acetaminophen (Tylenol) 650 mg PRN Q6HRS PRN PO MILD PAIN / TEMP > 100.3'F; Start 01/11/20 at 01:45 Tramadol HCl (Ultram) 50 mg PRN Q6HRS PRN PO SEVERE PAIN 7-10 Last administered on 01/13/20at 22:13; Start 01/11/20 at 01:45 Fentanyl Citrate (Fentanyl 2ml Vial) 25 mcg PRN Q2HR PRN IVP PAIN; Start 01/11/20 at 01:45 Ondansetron HCl (Zofran) 4 mg PRN Q6HRS PRN IVP NAUSEA/VOMITING Last administered on 01/12/20at 07:34; Start 01/12/20 at 02:30 Prochlorperazine Edisylate (Compazine) 10 mg PRN Q6HRS PRN IV NAUSEA/VOMITING- 2ND CHOICE Last administered on 01/13/20at 22:14; Start 01/12/20 at 13:00 Hydralazine HCl (Apresoline) 50 mg BID PO Last administered on 01/13/20at 08:29; Start 01/12/20 at 21:00; Stop 01/13/20 at 20:29; Status DC Potassium Chloride (Klor-Con) 40 meq 1X ONCE PO Last administered on 01/13/20at 09:54; Start 01/13/20 at 09:15; Stop 01/13/20 at 09:16; Status DC Potassium Chloride/Water 100 ml @ 100 mls/hr Q1H IV Last administered on 01/13/20at 14:59; Start 01/13/20 at 10:00; Stop 01/13/20 at 13:59; Status DC Hydralazine HCl (Apresoline) 75 mg BID PO Last administered on 01/14/20at 21:09; Start 01/13/20 at 21:00 Amlodipine Besylate (Norvasc) 5 mg 1X ONCE PO Last administered on 01/14/20at 12:16; Start 01/14/20 at 10:45; Stop 01/14/20 at 10:51; Status DC Losartan Potassium (Cozaar) 100 mg DAILY PO ; Start 01/15/20 at 09:00; Stop 01/15/20 at 08:27; Status DC Losartan Potassium (Cozaar) 100 mg DAILY@1200 PO ; Start 01/15/20 at 12:00 Amlodipine Besylate (Norvasc) 10 mg DAILY PO ; Start 01/15/20 at 09:00 Carvedilol (Coreg) 12.5 mg BIDWMEALS PO ; Start 01/15/20 at 08:30 Potassium Chloride (Klor-Con) 40 meq 1X ONCE PO ; Start 01/15/20 at 08:15; Stop 01/15/20 at 08:34; Status DC Potassium Chloride (Klor-Con) 40 meq 1X ONCE PO ; Start 01/15/20 at 12:00; Stop 01/15/20 at 12:01 Active Scripts Active Reported Furosemide 40 Mg Tablet 1 Tab PO DAILY Duloxetine HCl 40 Mg Capsule.dr 1 Cap PO DAILY 30 Days Pantoprazole Sodium (Pantoprazole Sodium) 40 Mg Tablet.dr 40 Mg PO DAILYAC Allopurinol 300 Mg Tablet 1 Tab PO DAILY Atorvastatin Calcium 20 Mg Tablet 1 Tab PO DAILY Levothyroxine Sodium 100 Mcg Tablet 1 Tab PO DAILY Toprol XL (Metoprolol Succinate) 50 Mg Tab.er.24h 50 Mg PO DAILY Klor-Con 10 (Potassium Chloride) 10 Meq Tablet.er 1 Tab PO DAILY 30 Days Hydralazine Hcl 25 Mg Tablet 1 Tab PO BID Lyrica (Pregabalin) 300 Mg Capsule 1 Cap PO BID Losartan Potassium 50 Mg Tablet 50 Mg PO DAILY Vitals/I & O Vital Sign - Last 24 Hours 01/14/20 01/14/20 01/14/20 01/14/20 10:42 12:16 15:00 19:00 Temp 97.8 97.8 97.8 97.8 97.8 97.8 Pulse 78 78 73 81 Resp 18 18 18 B/P (MAP) 156/65 (95) 156/65 142/79 (100) 217/94 (135) Pulse Ox 95 95 96 O2 Delivery Room Air Room Air Room Air 01/14/20 01/14/20 01/14/20 01/15/20 20:20 21:09 23:00 03:00 Temp 97.9 98.4 97.9 98.4 Pulse 81 69 77 Resp 18 18 B/P (MAP) 217/94 188/77 (114) 211/77 (121) Pulse Ox 93 91 O2 Delivery Room Air Room Air Room Air 01/15/20 01/15/20 04:13 07:00 Temp 98.7 98.7 Pulse 69 80 Resp 18 B/P (MAP) 211/77 186/80 (115) Pulse Ox 94 O2 Delivery Room Air Intake and Output 01/14/20 01/14/20 01/15/20 15:00 23:00 07:00 Intake Total 400 ml 100 ml Output Total 100 ml Balance 400 ml -100 ml 100 ml Justicifation of Admission Dx: Justifications for Admission: Justification of Admission Dx: N/A SHAQUILLE FIORE MD Jan 15, 2020 09:58
[2020-01-15] MEDS: ASPIRIN ENTERIC COATED 81 MG TABLET.DR. PO SCH (10:24)
[2020-01-15] MEDS: CARVEDILOL 12.5 MG TABLET. PO SCH ×2 (10:25→18:15)
[2020-01-15] MEDS ORDERED: ASPI-886 PO (11:30)
[2020-01-15] MEDS ORDERED: LOSA-73 PO (11:30)
[2020-01-15] MEDS ORDERED: CARV12.511 PO (11:30)
[2020-01-15] MEDS ORDERED: HYDR-2869 PO (11:30)
--- NOTE | 2020-01-15 11:33 | RAD ---
MR#: [id number] Date of Study: 01/15/2020 Ordering Physician: GEORGETTE PEÑALOZA, Referring Physician: GEORGETTE PEÑALOZA, Tech: Lety Sena RDMS, RVT, RTR APPROVED REPORT Patient Location: OUT-PATIENT Indications Uncontrolled HTN Renal Artery Doppler Right Renal Artery Left Renal Arter y Proximal 61.1/17.8 cm/secProximal Mid 94.8/14.0 cm/secMid Distal 46.4/12.7 cm/secDistal 66.2/18.5 cm/sec Renal/Aorta Ratio 0.00Renal/Aorta Ratio Prox. Resistive Index 0.71Prox. Resistive Index Mid Resistive Index 0.85Mid Resistive Index Distal Resistive Index 0.73Distal Resistive Index 0.72 Aortic Doppler VelocityWaveform Mid. Aorta 134.2 cm/sec Findings Grayscale images of the bilateral kidneys are grossly unremarkable on limited images. The left kidney was difficult to visualize in the proximal and middle renal arteries were not availab le to be interrogated by Doppler due to obstruction by bowel gas. The proximal, mid and distal renal artery velocities are within normal limits on the right side and t he distal left renal artery velocities within normal limits on the left side. Normal aortic velociti es are noted. Normal resistive indices and renal to aortic ratios based on limited Doppler evaluatio n of the left side. Normal appearance of the bladder. Critical Notification Critical Value: No <Conclusion> 1. No significant renal artery stenosis with limited evaluation of the left renal artery. Signed by : Manish Woods, Electronically Approved : 01/15/2020 11:32:33
--- NOTE | 2020-01-15 11:33 | SNU/HH DC ---
DISCHARGE ORDERS DISCHARGE INFORMATION: DISCHARGE DATE: Jan 15, 2020 FINAL DIAGNOSIS Problems Medical Problems: (1) Closed head injury Status: Acute (2) Syncope Status: Acute CONDITION ON DISCHARGE: Guarded CODE STATUS: Code Status: Full FPC: SNF STAY <30 DAYS: Yes HOSPICE: HOSPICE: No HOSPICE EVAL & TREAT: No LTAC: ADMIT TO LTAC: No POST DISCHARGE ORDERS: ACTIVITY ORDERS: Activity as tolerated WEIGHT BEARING STATUS: As tolerated CHECKS AFTER DISCHARGE: CHECKS AFTER DISCHARGE: Check blood press - daily (May need may need blood pressure dosage adjustment to allow for liberal blood pressure control) FOLLOW-UP: PHYSICIAN FOLLOW-UP: PCP within 1 week of discharge ADDITIONAL FOLLOW-UP: Orthostatic vital signs LAB ORDERS FOR FOLLOW-UP: CBC, CMP DISCHARGE MEDICATIONS: Home Meds Active Scripts Aspirin (ASPIRIN EC) 81 Mg Tablet., 81 MG PO DAILYWBKFT for CAD for 30 Days, #30 TAB.SR Prov:DELMAR BYRNE MD 01/15/20 Carvedilol (CARVEDILOL ) 12.5 Mg Tablet, 12.5 MG PO BIDWMEALS for HTN for 30 Days, #60 TAB Prov:DELMAR BYRNE MD 01/15/20 Hydralazine Hcl (HYDRALAZINE HCL) 50 Mg Tablet, 75 MG PO BID for HTN for 30 Days, #90 TAB Prov:DELMAR BYRNE MD 01/15/20 Losartan Potassium (COZAAR ) 50 Mg Tablet, 100 MG PO DAILY@1200 for HTN for 30 Days, #30 TAB Prov:DELMAR BYRNE MD 01/15/20 Reported Medications Furosemide (FUROSEMIDE) 40 Mg Tablet, 1 TAB PO DAILY, #30 TAB 5 Refills 01/10/20 Duloxetine HCl (Duloxetine HCl) 40 Mg Capsule.dr, 1 CAP PO DAILY for 30 Days, #30 CAP 0 Refills 01/10/20 Pantoprazole Sodium (PANTOPRAZOLE SODIUM ) 40 Mg Tablet.dr, 40 MG PO DAILYAC for GERD, TAB 01/10/20 Allopurinol (ALLOPURINOL) 300 Mg Tablet, 1 TAB PO DAILY, #30 TAB 5 Refills 01/10/20 Atorvastatin Calcium (ATORVASTATIN CALCIUM) 20 Mg Tablet, 1 TAB PO DAILY, #30 TAB 5 Refills 01/10/20 Levothyroxine Sodium (LEVOTHYROXINE SODIUM) 100 Mcg Tablet, 1 TAB PO DAILY, #30 TAB 5 Refills 01/10/20 Potassium Chloride (KLOR-CON 10) 10 Meq Tablet.er, 1 TAB PO DAILY for 30 Days, #30 TAB 0 Refills 01/10/20 Pregabalin (LYRICA) 300 Mg Capsule, 1 CAP PO BID, #60 CAP 2 Refills 01/10/20 Discontinued Reported Medications Metoprolol Succinate (Toprol XL) 50 Mg Tab.er.24h, 50 MG PO DAILY for FOR HYPERTENSION, TAB.SR 01/10/20 Hydralazine Hcl (HYDRALAZINE HCL) 25 Mg Tablet, 1 TAB PO BID, #60 TAB 5 Refills 01/10/20 Losartan Potassium (LOSARTAN POTASSIUM) 50 Mg Tablet, 50 MG PO DAILY for HYPERTENSION, TAB 01/10/20 DELMAR BYRNE MD Jan 15, 2020 11:33
--- NOTE | 2020-01-15 12:16 | NUR ---
Patient bladder scanned, per ANALYTICAL LABORATORY TECHNICIAN results were >999mL. Dr Roldan ordered pt to be straight cath. This nurse removed 1100mL via straight cath. Informed Dr Roldan of results. Dr Roldan states to rescan pt in 4 hours.
--- NOTE | 2020-01-15 13:48 | PDOC ---
GEORGETTE PEÑALOZA BRANCHER 01/15/20 1348: CARDIO Progress Notes Date and Time Date of Service 01/15/2020 Time of Evaluation 1150 Subjective Subjective: No Chest Pain, No shortness of breath, No Palpitations Vitals Vitals Vital Signs Date Time Temp Pulse Resp B/P (MAP) Pulse Ox O2 Delivery O2 Flow Rate FiO2 01/15/20 13:12 81 216/98 01/15/20 10:51 98.4 19 94 Room Air 98.4 Weight Weight [ ] Input and Output Intake and Output Intake and Output 01/15/20 07:00 Intake Total 500 ml Output Total 100 ml Balance 400 ml Intake Oral 500 ml Output Urine Total 100 ml Laboratory Labs Laboratory Tests Test 01/15/20 05:15 White Blood Count 11.2 x10^3/uL (4.0-11.0) Red Blood Count 4.32 x10^6/uL (3.50-5.40) Hemoglobin 14.3 g/dL (12.0-15.5) Hematocrit 41.8 % (36.0-47.0) Mean Corpuscular Volume 97 fL (79-100) Mean Corpuscular Hemoglobin 33 pg (25-35) Mean Corpuscular Hemoglobin Concent 34 g/dL (31-37) Red Cell Distribution Width 14.2 % (11.5-14.5) Platelet Count 204 x10^3/uL (140-400) Neutrophils (%) (Auto) 72 % (31-73) Lymphocytes (%) (Auto) 15 % (24-48) Monocytes (%) (Auto) 11 % (0-9) Eosinophils (%) (Auto) 2 % (0-3) Basophils (%) (Auto) 0 % (0-3) Neutrophils # (Auto) 8.1 x10^3/uL (1.8-7.7) Lymphocytes # (Auto) 1.7 x10^3/uL (1.0-4.8) Monocytes # (Auto) 1.2 x10^3/uL (0.0-1.1) Eosinophils # (Auto) 0.2 x10^3/uL (0.0-0.7) Basophils # (Auto) 0.0 x10^3/uL (0.0-0.2) Sodium Level 136 mmol/L (136-145) Potassium Level 3.1 mmol/L (3.5-5.1) Chloride Level 101 mmol/L (98-107) Carbon Dioxide Level 24 mmol/L (21-32) Anion Gap 11 (6-14) Blood Urea Nitrogen 16 mg/dL (7-20) Creatinine 0.6 mg/dL (0.6-1.0) Estimated GFR (Cockcroft-Gault) 94.3 Glucose Level 135 mg/dL (70-99) Calcium Level 9.2 mg/dL (8.5-10.1) Physical Exam HEENT: Neck Supple W Full Motion Chest: Symmetric LUNGS: Clear to Auscultation Heart: RRR (SR) Abdomen: Soft N/T Extremities: No Edema, No Calf Tenderness Neurology: alert, oriented, follow commands Assessment Assessment 1. Syncope with fall with scalp hematoma. No CSH, orthostasis. No arrhythmia so far 2. HTN urgency: remains labile 3. HLP: Statins 4. CAD: s/p PCI/stents 8 yrs ago per patient. clinically stable and chest pain- free. Continue current secondary prevention measures. 5. 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 Past left occipital stroke per CT, neuropathy. Neurology team following. 7. Headache, per neurology team Recommendations 1. Recommend follow-up with primary genetic coordinator for possible loop recorder implantation. 2. If no recent stress test then may need one given her increasing fatigue and cardiac risk factors 3. Continue secondary prevention measures 4. Continue current BP regimen, will add norvasc and increase losartan. Will check BP on both arms. 5. Renal duplex today and will check for PA-renin/blayne Justicifation of Admission Dx: Justifications for Admission: Justification of Admission Dx: N/A MAX MATOS MD 01/15/20 1941: CARDIO Progress Notes Assessment Assessment Patient seen and examined. Agree with BAND SHOVER's assessment and plan. Tele did not show any significant arrhythmias CAD clinically stable Agree with change in HTN meds as noted above for better BP control Renal arterial duplex did not show any significant HUMZA Renin/blayne levels pending Plan outpatient event monitor with primary genetic coordinator at GEORGETTE PEÑALOZA APRN Jan 15, 2020 13:48 MAX MATOS MD Jan 15, 2020 19:41
--- NOTE | 2020-01-15 15:12 | SNU/HH DC ---
DISCHARGE ORDERS DISCHARGE INFORMATION: DISCHARGE DATE: Jan 15, 2020 FINAL DIAGNOSIS Problems Medical Problems: (1) Closed head injury Status: Acute (2) Syncope Status: Acute CONDITION ON DISCHARGE: Guarded CODE STATUS: Code Status: Full PENITENTIARY: SNF STAY <30 DAYS: No HOSPICE: HOSPICE: No HOSPICE EVAL & TREAT: No LTAC: ADMIT TO LTAC: No POST DISCHARGE ORDERS: ACTIVITY ORDERS: Activity as tolerated WEIGHT BEARING STATUS: As tolerated CHECKS AFTER DISCHARGE: CHECKS AFTER DISCHARGE: Check blood press - daily (May need may need blood pressure dosage adjustment to allow for liberal blood pressure control) FOLLOW-UP: PHYSICIAN FOLLOW-UP: PCP within 1 week of discharge ADDITIONAL FOLLOW-UP: Orthostatic vital signs LAB ORDERS FOR FOLLOW-UP: CBC, CMP Additional Instructions: Patient recently has a renin aldosterone lab drawn that will need to be followed up either with cardiology or her PCP for further work-up for resistant hypertension. Patient may require spironolactone after discharge. TREATMENT/EQUIPMENT ORDERS: Physical Therapy For: Evalulation/Treatment Occupational Therapy For: Evaluation/Treatment Speech Language Pathology For: Swallow Cognition DISCHARGE MEDICATIONS: Home Meds Active Scripts Aspirin (ASPIRIN EC) 81 Mg Tablet.dr, 81 MG PO DAILYWBKFT for CAD for 30 Days, #30 TAB.SR Prov:DELMAR BYRNE MD 01/15/20 Carvedilol (CARVEDILOL ) 12.5 Mg Tablet, 12.5 MG PO BIDWMEALS for HTN for 30 Days, #60 TAB Prov:DELMAR BYRNE MD 01/15/20 Hydralazine Hcl (HYDRALAZINE HCL) 50 Mg Tablet, 75 MG PO BID for HTN for 30 Days, #90 TAB Prov:DELMAR BYRNE MD 01/15/20 Losartan Potassium (COZAAR ) 50 Mg Tablet, 100 MG PO DAILY@1200 for HTN for 30 Days, #30 TAB Prov:DELMAR BYRNE MD 01/15/20 Reported Medications Furosemide (FUROSEMIDE) 40 Mg Tablet, 1 TAB PO DAILY, #30 TAB 5 Refills 01/10/20 Duloxetine HCl (Duloxetine HCl) 40 Mg Capsule.dr, 1 CAP PO DAILY for 30 Days, #30 CAP 0 Refills 01/10/20 Pantoprazole Sodium (PANTOPRAZOLE SODIUM ) 40 Mg Tablet.dr, 40 MG PO DAILYAC for GERD, TAB 01/10/20 Allopurinol (ALLOPURINOL) 300 Mg Tablet, 1 TAB PO DAILY, #30 TAB 5 Refills 01/10/20 Atorvastatin Calcium (ATORVASTATIN CALCIUM) 20 Mg Tablet, 1 TAB PO DAILY, #30 TAB 5 Refills 01/10/20 Levothyroxine Sodium (LEVOTHYROXINE SODIUM) 100 Mcg Tablet, 1 TAB PO DAILY, #30 TAB 5 Refills 01/10/20 Potassium Chloride (KLOR-CON 10) 10 Meq Tablet.er, 1 TAB PO DAILY for 30 Days, #30 TAB 0 Refills 01/10/20 Pregabalin (LYRICA) 300 Mg Capsule, 1 CAP PO BID, #60 CAP 2 Refills 01/10/20 Discontinued Reported Medications Metoprolol Succinate (Toprol XL) 50 Mg Tab.er.24h, 50 MG PO DAILY for FOR HYPERTENSION, TAB.SR 01/10/20 Hydralazine Hcl (HYDRALAZINE HCL) 25 Mg Tablet, 1 TAB PO BID, #60 TAB 5 Refills 01/10/20 Losartan Potassium (LOSARTAN POTASSIUM) 50 Mg Tablet, 50 MG PO DAILY for HYPERTENSION, TAB 01/10/20 DELMAR BYRNE MD Jan 15, 2020 15:11
--- NOTE | 2020-01-15 17:09 | NUR ---
SW following. Spoke with RN and reviewed chart. SUSIE spoke with Yusuf from [facility]. Pt accepted clinically and there is a bed today. SW phoned and faxed discharge orders. Transportation arranged for 1800. Packet of clinicals updated and ready to send with pt. RN to call report. SUSIE met with pt and pt's two daughters who are agreeable to discharge. No further SW needs at this time.
[2020-01-15] MEDS ORDERED: ATORVASTATIN CALCIUM 20 MG TABLET PO SCH (21:00)
--- NOTE | 2020-01-16 21:23 | PDOC3 ---
Team [facility]-Discharge Summary Date of Admission: Date of Admission: Jan 10, 2020 Date of Discharge: Date of Discharge: Jan 15, 2020 Admission Diagnosis: Admitting Diagnosis: Syncope, scalp hematoma, possible subacute stroke, hyperglycemia, azotemia. Discharge Diagnosis: Discharge Diagnosis: Syncope with fall with scalp hematoma HTN urgency HLP: Statins CAD: s/p PCI/stents 8 yrs ago per patient. clinically stable and chest pain- free. Continue current secondary prevention measures. 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 Neurology team following. Hypokalemia Echo on 01/14/20 showing severe pulmonary HTN Consults: Consults: Neurology Hospital Course: Hospital Course: The patient is a pleasant elderly female who apparently fell. She was out for a minute or two. She struck her head. They called the ambulance. She was brought in by ambulance. Trauma activation was initiated. In the ER, we have done some CAT scans of her brain. This showing a subacute stroke. She states she has been seeing a sunflower in her eye for the last 3 months. We suspect that might be when she had her stroke. Nevertheless, I discussed the case with ER physician. We are going to admit the patient and consult Cardiology and Neurology. Patient admitted to for further treatment and evaluation by our consultants. MRI brain was negative for acute stroke. CT did find remote occipital stroke that cardiology deemed as possible cardioembolic for which they did recommend a possibe loop recorder implantation as an outpatient. Patient will be transferred to [facility] for further care. Patient did also have some urinary retention on the day of her discharge which required intermittent straight cath. The rest of her hospital course was uneventful. Disposition: Disposition/Orders: D/C to Home, D/C to Another Facility Activity: Activity: Resume previous activity Diet: Diet: Regular Medications: Home Meds Active Scripts Aspirin (ASPIRIN EC) 81 Mg Tablet.dr 81 MG PO DAILYWBKFT for CAD for 30 Days, #30 TAB.SR Prov:DELMAR BYRNE MD 01/15/20 Carvedilol (CARVEDILOL ) 12.5 Mg Tablet, 12.5 MG PO BIDWMEALS for HTN for 30 Days, #60 TAB Prov:DELMAR BYRNE MD 01/15/20 Hydralazine Hcl (HYDRALAZINE HCL) 50 Mg Tablet, 75 MG PO BID for HTN for 30 Days, #90 TAB Prov:DELMAR BYRNE MD 01/15/20 Losartan Potassium (COZAAR ) 50 Mg Tablet, 100 MG PO DAILY@1200 for HTN for 30 Days, #30 TAB Prov:DELMAR BYRNE MD 01/15/20 Reported Medications Furosemide (FUROSEMIDE) 40 Mg Tablet, 1 TAB PO DAILY, #30 TAB 5 Refills 01/10/20 Duloxetine HCl (Duloxetine HCl) 40 Mg Capsule.dr, 1 CAP PO DAILY for 30 Days, #30 CAP 0 Refills 01/10/20 Pantoprazole Sodium (PANTOPRAZOLE SODIUM ) 40 Mg Tablet.dr, 40 MG PO DAILYAC for GERD, TAB 01/10/20 Allopurinol (ALLOPURINOL) 300 Mg Tablet, 1 TAB PO DAILY, #30 TAB 5 Refills 01/10/20 Atorvastatin Calcium (ATORVASTATIN CALCIUM) 20 Mg Tablet, 1 TAB PO DAILY, #30 TAB 5 Refills 01/10/20 Levothyroxine Sodium (LEVOTHYROXINE SODIUM) 100 Mcg Tablet, 1 TAB PO DAILY, #30 TAB 5 Refills 01/10/20 Potassium Chloride (KLOR-CON 10) 10 Meq Tablet.er, 1 TAB PO DAILY for 30 Days, #30 TAB 0 Refills 01/10/20 Pregabalin (LYRICA) 300 Mg Capsule, 1 CAP PO BID, #60 CAP 2 Refills 01/10/20 Discontinued Reported Medications Metoprolol Succinate (Toprol XL) 50 Mg Tab.er.24h, 50 MG PO DAILY for FOR HYPERTENSION, TAB.SR 01/10/20 Hydralazine Hcl (HYDRALAZINE HCL) 25 Mg Tablet, 1 TAB PO BID, #60 TAB 5 Refills 01/10/20 Losartan Potassium (LOSARTAN POTASSIUM) 50 Mg Tablet, 50 MG PO DAILY for HYPERTENSION, TAB 01/10/20 Scheduled Allopurinol (Allopurinol), 1 TAB PO DAILY, (Reported) Aspirin (Aspirin Ec), 81 MG PO DAILYWBKFT Atorvastatin Calcium (Atorvastatin Calcium), 1 TAB PO DAILY, (Reported) Carvedilol (Carvedilol ), 12.5 MG PO BIDWMEALS Duloxetine HCl (Duloxetine HCl), 1 CAP PO DAILY, (Reported) Furosemide (Furosemide), 1 TAB PO DAILY, (Reported) Hydralazine Hcl (Hydralazine Hcl), 75 MG PO BID Levothyroxine Sodium (Levothyroxine Sodium), 1 TAB PO DAILY, (Reported) Losartan Potassium (Cozaar ), 100 MG PO DAILY@1200 Pantoprazole Sodium (Pantoprazole Sodium ), 40 MG PO DAILYAC, (Reported) Potassium Chloride (Klor-Con 10), 1 TAB PO DAILY, (Reported) Pregabalin (Lyrica), 1 CAP PO BID, (Reported) Discontinued Medications Hydralazine Hcl (Hydralazine Hcl), 1 TAB PO BID, (Reported) Losartan Potassium (Losartan Potassium), 50 MG PO DAILY, (Reported) Metoprolol Succinate (Toprol XL), 50 MG PO DAILY, (Reported) Total Time: Total Time: Total time spent was 40 minutes in preparing scripts, discharge planning with SW and RN, and preparing this discharge summary. Patient seen and examined on day of discharge. Justicifation of Admission Dx: Justifications for Admission: Justification of Admission Dx: N/A DELMAR BYRNE MD Jan 16, 2020 21:23
[2020-01-22 16:19] LABS: ALDOSTERONE <1.0 ng/dL (0.0-30.0)
== END 2020-01-15 18:35 | DRG 74 ==
LOC: ER 09:58 → 5 NORTH 13:04 → ED HOLD 13:11 → 5 NORTH 16:02 → OBSVTOIN 23:15
PROVIDERS: ADMIT Internal Medicine; ATTEND Internal Medicine
DX: G90.8 Other disorders of autonomic nervous system (principal); S06.0X9A Concussion with loss of consciousness of unspecified duration, initial encounter; E87.6 Hypokalemia; I16.0 Hypertensive urgency; E03.9 Hypothyroidism, unspecified; E78.00 Pure hypercholesterolemia, unspecified; E78.5 Hyperlipidemia, unspecified; G60.9 Hereditary and idiopathic neuropathy, unspecified; I11.0 Hypertensive heart disease with heart failure; I25.10 Atherosclerotic heart disease of native coronary artery without angina pectoris; I27.20 Pulmonary hypertension, unspecified; I35.0 Nonrheumatic aortic (valve) stenosis; I50.9 Heart failure, unspecified; X58.XXXA Exposure to other specified factors, initial encounter; Z83.3 Family history of diabetes mellitus; Z86.73 Personal history of transient ischemic attack (TIA), and cerebral infarction without residual deficits; Z95.2 Presence of prosthetic heart valve; Z95.5 Presence of coronary angioplasty implant and graft; F32.9 Major depressive disorder, single episode, unspecified; F41.9 Anxiety disorder, unspecified; G47.33 Obstructive sleep apnea (adult) (pediatric); J30.9 Allergic rhinitis, unspecified; K21.9 Gastro-esophageal reflux disease without esophagitis; M10.9 Gout, unspecified; M19.90 Unspecified osteoarthritis, unspecified site; R29.6 Repeated falls; Z20.828 Contact with and (suspected) exposure to other viral communicable diseases
CPT/HCPCS: 36415; 70450; 70551; 72125; 76770; 80048; 80053; 80061; 81001; 82088; 83036; 83735; 84244; 84443; 84484; 85007; 85025; 85610; 85730; 93005; 93306; 96374; 99285; G0378; G0379; J0780; J2405; J3480; J3490; U0003; 97110-GP; 97116-GP; 97530-GO; 97530-GP; 97535-GO